=== PATIENT | female | born 1970 | race Caucasian/White ===

== ENCOUNTER 2019-04-16 07:36 | Emergency (ER) | payer OTHER, SELFPAY ==
[2019-04-16 07:37] VITALS: BP 165/86; PULSE 101; RESP 16; TEMP 36.7; O2SAT 99; BMI 39.2
--- NOTE | 2019-04-16 07:53 | CT_ITS ---
STUDY: CT ABDOMEN AND PELVIS WITHOUT CONTRAST REASON FOR EXAM: Female, 48 years old. Right-sided abdominal pain. RADIATION DOSAGE (If Supplied By Facility): CTDIvol = ( 22.66 ) mGy, DLP = ( 1194.69 ) mGycm TECHNIQUE: Transaxial images were obtained from the dome of the diaphragm to the symphysis pubis without oral contrast, and without intravenous contrast. Sagittal and coronal images were reconstructed. Individualized dose optimization techniques were used for this CT. COMPARISON: Comparison is made with prior study dated February 22, 2016. FINDINGS: The visualized lung bases are unremarkable. The visualized portions of the heart are within normal limits. There is decreased attenuation of the liver consistent with steatosis. Mild hepatomegaly. Normal gallbladder and extrahepatic biliary system. Borderline splenomegaly. Normal pancreas. Normal bilateral adrenal glands. Normal right kidney. Normal left kidney. Normal visualized stomach. Normal small intestine. There are multiple colonic diverticula consistent with diverticulosis. The appendix is visualized and appears normal. There is diffuse atherosclerotic calcification of the abdominal aorta, without a demonstrated aneurysm. Normal inferior vena cava. Normal retroperitoneum. Normal urinary bladder. Essure device is seen in both fallopian tubes. Small bilateral benign-appearing inguinal lymph nodes. There is a small umbilical hernia containing fat. There are diffuse degenerative changes of the visualized lumbar spine. CT/Abdomen/Pelvis without Cont IMPRESSION: Sigmoid diverticulosis. Hepatomegaly with diffuse fatty infiltration of the liver. Borderline splenomegaly. Electronically Signed: Kingsley Blankenship, at 8:52 EDT , Service support ,
[2019-04-16] MEDS: 0.9% Normal Saline 1,000 ML 125 ML IV (08:20)
[2019-04-16 08:27] LABS: Bacteria 0 SEEN /hpf (None Seen); Mucous, Urine 0 SEEN /hpf (<or=2+); Red Blood Cells-Urine 0 SEEN /hpf (0-5); White Blood Cells 0 SEEN /hpf (0-5)
[2019-04-16 08:28] LABS: Absolute Lymphocyte Count 1.73 X10^3/uL (0.83-4.51); Absolute Neutrophil Count 7.4 X10^3/uL (2.0-7.7); Basophil# 0.07 X10^3/uL; Basophil% 0.7 % (0-1); Eosinophil# 0.17 X10^3/uL; Eosinophils% 1.7 % (0-5); Hemoglobin 16.3 g/dL (12.0-15.0); Lymphocyte # 1.73 X10^3/ul (4.0); Lymphocyte % 17.3 % (19-41); Mean Corpuscular Hgb 30.9 pg (27.0-32.0); Mean Corpuscular Volume 91.1 fL (81-99); Mean Platelet Vol. 10.4 fl (6.2-12.0); Monocyte# 0.59 X10^3/uL; Monocyte% 5.9 % (0-10); NRBC Flagged by Analyzer 0 % (0-5); Neutrophil # 7.38 X10^3/uL (2.7-7.7); Neutrophil % 73.9 % (47-70); Platelet Count 267 K/mm3 (150-450); RBC Distribution Width CV 12.9 % (11.6-14.6); RBC Distribution Width SD 42.5 fl (35.1-43.9); Red Blood Count 5.27 M/mm3 (4.2-5.4)
[2019-04-16 08:34] LABS: Color, Urine Yellow (Yellow); Glucose, Dipstick Normal (Normal); Ketone-Dipstick Negative (Negative); Leukocyte Esterase-Dipstick Negative /ul (Negative); Nitrite-Dipstick Negative (Negative); Occult Blood-Urine Negative /ul (Negative); Protein-Dipstick Negative (Negative); Urine Bilirubin Dipstick Negative (Negative); Urine Clarity Clear (Clear); Urine Urobilinogen Normal (Normal); Urine pH 6.5 (5.0 - 8.0)
[2019-04-16 08:41] LABS: Squamous Epithelial Cells - UA 0-5 SEEN /hpf (5-10)
[2019-04-16 08:41] LABS: Anion Gap 6 (5-15); BUN 12 mg/dL (7-18); BUN/Creat Ratio 13.4 RATIO (10-20); Calcium,Total 9.1 mg/dL (8.5-10.1); Chloride 105 mmol/L (98-107); EST Glomerular Filtration Rate 71 mL/min (>60); Est Glom Filt Rate - Afr Amer 86 mL/min (>60); Estimated Creatinine Clearance 70.78 ml/min; Glucose 136 mg/dL (74-106); Potassium 4.1 mmol/L (3.5-5.1); Sodium Level 139 mmol/L (136-145)
--- NOTE | 2019-04-16 09:18 | ED.VISSUMM ---
- ER Visit Summary Date of Service: 04/16/19 Chief Complaint: Pain History of Present Illness: The patient is a 48 F with right inguinal pain for 2 days. It was worse today. It feels like a stabbing pain. Nothing seemed to bring it on. It is worse with sitting, but only sometimes. Nothing seems to make it better. Patient denies any other associated symptoms like GI, , or RAIL SIGNAL DESIGNER symptoms. Denies fevers or recent illness. Denies hip pain, hip injury, back injury, weakness, or numbness. Denies any history of this pain. She is menopausal. She has a history of Essure (sp?) placement. Physical Examination: Afebrile and vital signs unremarkable except heart rate of 101 and blood pressure 165/86. She appears nontoxic and in no acute distress. Alert and oriented. Heart regular. Lungs clear. Abdomen is tender in the right inguinal region. No guarding or rebound. Pelvic exam was deferred secondary to no RAIL SIGNAL DESIGNER symptoms or historical risk factors. Back is nontender. Skin appears normal. Test Results: Hemoglobin 16.3, glucose 136, urinalysis unremarkable. CT showed diverticulosis without diverticulitis, fatty liver and hepatosplenomegaly noted. Emergency Department Course and Treatment: Patient presents with right inguinal pain. No other contributing historical features or symptoms. Her exam was fairly unremarkable but she does have some inguinal tenderness. She declined pain medicine while awaiting results. Labs, urinalysis, CT fairly unremarkable. Certainly nothing to explain her inguinal pain. Patient will be referred for outpatient follow-up. Use [id number]-[id number] remedies for pain. Rest. Monitor for new or worsening symptoms. Follow-up with primary care or return if worse. Treatment Plan: As above Disposition: Discharge Impression: Right inguinal pain This note was generated with [employer] dictation software. It may contain incorrect words, spelling, and punctuation that were not noted in review of the chart prior to signing ED Disposition - Plan for ED Patient: Referrals: Care Physician,No Primary [Primary Care Provider] -
--- NOTE | 2019-04-16 09:23 | ED.DEP ---
ED Disposition - Plan for ED Patient: Instructions: ABDOMINAL PAIN, Unknown Cause, (Female) Referrals: Aida Villalba [NON-STAFF] - As Needed
[2019-04-16 09:39] VITALS: BP 142/90; PULSE 72; RESP 16; O2SAT 96
--- NOTE | 2019-04-16 09:39 | ED.RN ---
IV DC'ED, CATHETER INTACT, SMALL GAUZE DRESSING PLACED. DISCHARGE INSTRUCTIONS GIVEN TO AND REVIEWED WITH PATIENT, PATIENT DENIES QUESTIONS OR CONCERNS AND VOICES UNDERSTANDING OF DISCHARGE INSTRUCTIONS. PT AMBULATES OUT OF ROOM WITHOUT DIFFICULTY.
== END 2019-04-16 09:41 | disposition home or self-care (01) ==
LOC: ED 08:16
PROVIDERS: Emergency Provider Emergency Medicine
DX: R10.31 Right lower quadrant pain (principal); Z72.0 Tobacco use
CPT/HCPCS: 74176; 80048; 81001; 85025; 96360; 99283; J7030; A4216

== ENCOUNTER → 2019-12-23 | Outpatient (CLI) | payer OTHER, SELFPAY ==
[2019-12-23 10:16] LABS: ALB/GLOB Ratio 0.7 RATIO (0.9-2.4); AST(SGOT) 25 U/L (15-37); Alanine Aminotransfer ALT/SGPT 33 U/L (13-56); Albumin, Serum 3.4 g/dL (3.2-5.0); Alkaline Phosphatase 134 U/L (45-117); Anion Gap 6 (5-15); BUN 12 mg/dL (7-18); BUN/Creat Ratio 15.2 RATIO (10-20); Calcium,Total 8.8 mg/dL (8.5-10.1); Chloride 101 mmol/L (98-107); Cholesterol 175 mg/dL (200); Creatinine, Serum 0.79 mg/dL (0.55-1.02); EST Glomerular Filtration Rate 82 mL/min (>60); Est Glom Filt Rate - Afr Amer 99 mL/min (>60); Globulin 4.9 g/dL (2.2-4.2); Glucose 169 mg/dL (74-106); High Density Lipoprotein 35 mg/dL; Potassium 3.5 mmol/L (3.5-5.1); Protein, Total 8.3 g/dL (6.4-8.2); Sodium Level 137 mmol/L (136-145); Triglycerides 123 mg/dL; Very Low Density Lipoprotein 25 mg/dL (5-40)
== END | disposition home or self-care (01) ==
LOC: MTLAB 07:46
PROVIDERS: PCP Family Medicine; Referring Provider Family Medicine; Visit Provider Family Medicine
DX: Z13.1 Encounter for screening for diabetes mellitus (principal); Z13.220 Encounter for screening for lipoid disorders
CPT/HCPCS: 36415; 80053; 80061

== ENCOUNTER → 2020-02-18 | Outpatient (CLI) | payer OTHER, SELFPAY | END | disposition home or self-care (01) | PROVIDERS: Visit Provider Family Medicine | DX: R05 Cough (principal) | CPT/HCPCS: 87635; U0003 ==

== ENCOUNTER → 2020-02-27 | Outpatient (CLI) | payer OTHER, SELFPAY ==
--- NOTE | 2020-02-27 12:20 | LES_PTH ---
PATIENT: REAL SARAVIA LOC: [facility] U#:[id number] AGE/SX: 49/F ROOM: RE02/27/[address]: Dr. Mik Acuna MD : 1970 BED: DIS: 02/27/2020 SPEC #: [id number] RECD: 02/27/20 15:14 STATUS: DONALD BLAINE #: [id number] MIMI: 02/27/20 12:[address]: Mik Acuna DEPT: SURGICAL PATHOLOGY RECD BY: Gilberto Leonard Tissues: Skin of upper extremity and shoulder Procedures: Surgery Specimen Level IV HEADER OPERATION: Shave biopsy PRE-OP DIAGNOSIS: Atypical skin lesion TISSUE SUBMITTED: Left shoulder blade MICROSCOPIC DIAGNOSIS Skin lesion of left shoulder blade, shave biopsy: Actinic keratosis, hyperkeratotic type. AM:sami 03/02/20 MICROSCOPIC DESCRIPTION Slides are reviewed. GROSS DESCRIPTION Received in fixative is one container labeled with the patient's name and designated left shoulder blade. The specimen consists of a piece of alanis-white skin measuring 0.8 x 0.6 x 0.2 cm. The skin surface is granular. The specimen is inked and submitted entirely in one cassette. It will be sectioned at the time of embedding. / KAMARI:sami 03/01/20 TC:5 [facility]: [id number]
== END | disposition home or self-care (01) ==
LOC: LABSPEC 15:58
PROVIDERS: Referring Provider Family Medicine; Visit Provider Family Medicine
DX: L98.9 Disorder of the skin and subcutaneous tissue, unspecified (principal)
CPT/HCPCS: 88305

== ENCOUNTER → 2020-03-05 | Outpatient (CLI) | payer OTHER, SELFPAY ==
--- NOTE | 2020-03-05 13:14 | PFTCOMP_ITS ---
COMPLETE PULMONARY FUNCTION TEST INTERPRETATION Brief HPI: Patient is a 49 year old female, currently under the care of Dr. Acuna, who presents to [facility] for complete pulmonary function tests secondary to diagnosis of dyspnea. Respiratory therapist reports good effort and reproducible results. Interpretation: Forced expiration spirometry shows no large airways obstructive ventilatory defect with an FEV1 of 76% predicted. There is no significant bronchodilator response by strict ATS criteria. Spirograms are of good quality and plateau normally. The respiratory flow volume loop shows a normal pattern. Lung volumes by body plethysmography show a decreased total lung capacity at 3.91 L, 65% predicted. All other lung volumes are reduced symmetrically. Diffusion capacity by carbon monoxide is decreased at 64% predicted. The airway resistance is normal. No previous pulmonary function tests were available for review. Impression: Moderate restrictive ventilatory defect with a symmetric reduction diffusing capacity and a plantar consistent with possible interstitial lung disease. Consider chest imaging if not completed previously.
== END | disposition home or self-care (01) ==
LOC: PSN 09:37
PROVIDERS: PCP Family Medicine; Referring Provider Family Medicine; Visit Provider Family Medicine
DX: R06.02 Shortness of breath (principal)
CPT/HCPCS: 94060; 94726; 94729

== ENCOUNTER → 2020-03-29 | Outpatient (CLI) | payer OTHER, SELFPAY ==
--- NOTE | 2020-03-29 07:42 | CT_ITS ---
STUDY: CT CHEST WITH CONTRAST REASON FOR EXAM: Female, 49 years old. SHORT OF BREATH X 2-3 MON, HX-DB RADIATION DOSAGE (If Supplied By Facility): CTDIvol = ( 13.32 ) mGy, DLP = ( 642.84 ) mGycm TECHNIQUE: Transaxial imaging was performed following intravenous administration of IV 100mL Isovue-300. Multiplanar coronal and sagittal images were reformatted. Individualized dose optimization techniques were used for this CT. COMPARISON: None. FINDINGS: The lungs are normal. There is no demonstrated pleural abnormality. Normal heart and pericardium. There are multiple small lymph nodes within the mediastinum, which are normal in size and morphology most compatible with reactive lymph hyperplasia. Normal hilar regions. Normal enhanced pulmonary arteries. There is atherosclerotic calcification of the aortic arch . Normal osseous structures. Mild hepatomegaly and diffuse fatty infiltration of the liver. CT/Chest WITH Contrast IMPRESSION: The lungs are clear. Fatty infiltration of the liver. Electronically Signed: Kingsley Blankenship, at 8:45 EDT , Service support ,
[2020-03-29 08:06] LABS: CREATININE FINGERSTICK 1.1 mg/dL (0.55-1.02)
== END | disposition home or self-care (01) ==
LOC: CT 07:40
PROVIDERS: PCP Family Medicine; Referring Provider Family Medicine; Visit Provider Family Medicine
DX: R06.02 Shortness of breath (principal)
CPT/HCPCS: 71260; Q9967

== ENCOUNTER → 2020-09-20 16:41 | Outpatient (CLI) | payer OTHER, SELFPAY | PROVIDERS: PCP Family Medicine; Visit Provider Family Medicine | DX: U07.1 COVID-19 (principal) | CPT/HCPCS: 87635; U0002 ==

== ENCOUNTER → 2021-01-07 07:52 | Outpatient (CLI) | payer OTHER, SELFPAY ==
--- NOTE | 2021-01-07 09:03 | BI_ITS ---
MAMMOGRAPHY - BILATERAL DIAGNOSTIC REASON FOR EXAM: Female, 50 years old. Right breast mass at 3 cm from the nipple at 1 o''clock position. PERTINENT HISTORY: Aunt with breast cancer. TECHNIQUE: Digital bilateral breast cynthia (3D mammographic acquisition) in the CC and MLO projections. 2-D mediolateral oblique (MLO) and craniocaudad (CC) views of both breasts were obtained. CAD: Full Field Digital Mammography with Computer Added Detection was performed. COMPARISON: Comparison is made with prior examination dated 01/18/2000 FINDINGS: Breast Composition: There are scattered areas of fibroglandular density. There is no evidence of a 1.5 cm x 1.5 cm density with microcalcifications in the central anterior medial aspect of the right breast. A biopsy is strongly recommended. No other significant abnormalities are identified. BI/DIAG MAMM W/CAD, BILAT IMPRESSION: 1.5 cm x 1.5 cm soft tissue density with microcalcifications in the central anterior medial aspect of the right breast. A biopsy is strongly recommended. ASSESSMENT CATEGORY: BIRADS Category 5: Highly Suggestive of Malignancy - Appropriate Action Should Be Taken. A letter regarding these results will be sent to the patient by the facility within 30 days. Approximately 10% of breast cancers are not detected by mammography. A normal mammogram should not delay biopsy of a clinically suspicious abnormality. Electronically Signed: Kingsley Blankenship MD at 10:32 EDT , Service support ,
--- NOTE | 2021-01-07 09:03 | US_ITS ---
STUDY: ULTRASOUND BREAST - RIGHT REASON FOR EXAM: Female, 50 years old. Palpable lump in the right breast. TECHNIQUE: Axial and longitudinal images of the RIGHT breast were performed with a high resolution ultrasound transducer. # OF IMAGES: 16 COMPARISON: Comparison is made with prior mammogram done earlier today. FINDINGS: RIGHT Breast: The palpable abnormality corresponds to a 2 cm x 2.1 cm by 2.4 cm spiculated hypoechoic density at the 1 o''clock position of the breast at 5 cm from nipple. There is evidence of posterior acoustical shadowing. A biopsy is strongly recommended. US/Breast Limited Unilateral IMPRESSION: 2 cm x 2.1 cm x 2.4 cm spiculated hypoechoic solid nodule at the 1 o''clock position of the breast at 5 cm from nipple. Biopsy is strongly recommended. ASSESSMENT CATEGORY: BIRADS Category 5: Highly Suggestive of Malignancy - Appropriate Action Should Be Taken. A letter regarding these results will be sent to the patient by the facility within 30 days. Electronically Signed: Kingsley Blankenship MD at 10:55 EDT , Service support ,
[2021-01-07 10:01] LABS: Absolute Lymphocyte Count 2.63 X10^3/uL (0.83-4.51); Absolute Neutrophil Count 10.1 X10^3/uL (2.0-7.7); Basophil# 0.08 X10^3/uL; Basophil% 0.6 % (0-1); Eosinophil# 0.26 X10^3/uL; Eosinophils% 1.9 % (0-5); Hematocrit 51.1 % (37-47); Hemoglobin 16.9 g/dL (12.0-15.0); Lymphocyte # 2.63 X10^3/ul (0.83-4.51); Lymphocyte % 18.7 % (19-41); Mean Corp Hgb Conc 33.1 g/dL (32-36); Mean Corpuscular Hgb 30.4 pg (27.0-32.0); Mean Corpuscular Volume 91.9 fL (81-99); Mean Platelet Vol. 10.9 fl (6.2-12.0); Monocyte# 0.85 X10^3/uL; Monocyte% 6.1 % (0-10); NRBC Flagged by Analyzer 0 % (0-5); Neutrophil # 10.14 X10^3/uL (2.7-7.7); Neutrophil % 72.2 % (47-70); Platelet Count 335 K/mm3 (150-450); RBC Distribution Width CV 12.5 % (11.6-14.6); RBC Distribution Width SD 42.5 fl (35.1-43.9); Red Blood Count 5.56 M/mm3 (4.2-5.4)
[2021-01-07 10:27] LABS: ALB/GLOB Ratio 0.7 RATIO (0.9-2.4); AST(SGOT) 19 U/L (15-37); Alanine Aminotransfer ALT/SGPT 27 U/L (13-56); Albumin, Serum 3.5 g/dL (3.2-5.0); Alkaline Phosphatase 132 U/L (45-117); Anion Gap 7 (5-15); BUN 14 mg/dL (7-18); BUN/Creat Ratio 14.2 RATIO (10-20); Calcium,Total 9.5 mg/dL (8.5-10.1); Chloride 99 mmol/L (98-107); Cholesterol 199 mg/dL (200); Creatinine, Serum 0.99 mg/dL (0.55-1.02); EST Glomerular Filtration Rate 63 mL/min (>60); Est Glom Filt Rate - Afr Amer 76 mL/min (>60); Globulin 5.1 g/dL (2.2-4.2); Glucose 208 mg/dL (74-106); High Density Lipoprotein 37 mg/dL; Potassium 3.6 mmol/L (3.5-5.1); Protein, Total 8.6 g/dL (6.4-8.2); Sodium Level 136 mmol/L (136-145); Triglycerides 171 mg/dL; Very Low Density Lipoprotein 34 mg/dL (5-40)
[2021-01-07 11:04] LABS: Microalbumin,Random Urine 12.4 mg/L (NO RANGE EST.); Microalbumin:Creatinine Ratio 8.3 mg/g CRE (<30 mg/g CRE)
[2021-01-07 11:33] LABS: Hemoglobin A1c 6.8 % (3.8-5.6)
== END ==
PROVIDERS: PCP Family Medicine; Referring Provider Family Medicine; Visit Provider Family Medicine
DX: N63.10 Unspecified lump in the right breast, unspecified quadrant (principal); E11.9 Type 2 diabetes mellitus without complications
CPT/HCPCS: 36415; 76642; 77062; 77066; 80053; 80061; 82043; 82570; 83036; 85025; G0279

== ENCOUNTER → 2021-01-10 | Outpatient (CLI) | payer OTHER, SELFPAY ==
--- NOTE | 2021-01-10 | IMM_PTH ---
PATIENT: REAL SARAVIA LOC: [facility] U#:[id number] AGE/SX: 50/F ROOM: RE01/10/[address]: Dr. Livan Serra MD : 1970 BED: DIS: 01/10/2021 SPEC #: [id number] RECD: 01/12/21 14:01 STATUS: DONALD RERandee #: [id number] MIMI: 01/10/21 00:[address]: Livan Serra DEPT: IMMUNOHISTOCHEMISTRY RECD BY: Mary Plascencia ENTERED: 01/12/21 14:02 SP TYPE: IMMUNO OTHR DR: Dr. Mik Acuna MD Tissues: Right breast, NOS Procedures: CALPONIN-1 (add) CK5-6 (add) CK8 (add) YOUSIF-2 (add) E-CAD (add) HER2 LEON (add) KI-67 (add) P53 (add) MN (add) IN SITU HYBRIDIZATION P40 (add) ER (initial) PHYSICIAN & [address] [address] SPECIMEN INFORMATION: Tissue Source: Right breast Clinical Info: Right breast mass Specimen Number: [id number] CPT code: 19979, 50809 x7, 99337 x3, 94488 x2 METHODOLOGY: Deparaffinized sections of prefer/formalin-fixed tissue or PAP/DQ stained slides are incubated with monoclonal/polyclonal antibodies/oligonucleotide probes. Localization is made via biotin free immunoperoxidase method. Appropriate controls are performed and reacted as expected. Results on target cell population are indicated in the following table: RESULTS: ANTIBODY / CLONE RESULT P53 (DO-7) positive, 55% Ki-67 (30-9) positive, 75% CK8 (37zcghK70) positive CK5-6 (D5 & 1684) negative Calponin-1 (YJ043K) negative P40 (BC28) negative E-Cad (ECH-6) positive YOUSIF-2 (SP21) positive, strong MORPHOMETRIC ANALYSIS ER (clone 6F11) >95%, strong MN (clone 16/1E2) 85%, moderate to strong Her-2Neu (clone CB11) 2+ The prognostic test for HER2 is performed on formalin-fixed paraffin embedded tissue. A 3+ (positive) staining pattern is defined as intense, homogeneous, complete, circumferential membranous staining in >10% of contiguous tumor cells. A similar weak (2+) staining pattern is interpreted as equivocal. CHELY follow-up testing is recommended for all equivocal cases. Positivity/negativity for ER/MN is reported if > or < 1% of the tumor cells are immuno- reactive, respectively. The ASCO/CAP criteria is used for scoring. Reference: Journal of Clinical Oncology, 2013; 31:8067-6091 & 2010; 16:7883-0388. Duration of fixation: 31.5 Hrs; Sample Adequate: Yes. These assays have not been validated on decalcified tissues. Results should be interpreted with caution given the likelihood of false negativity on decalcified specimens. These tests were developed and their performance characteristics determined by [facility]. They may not have been cleared or approved by the U.S. Food and Drug Administration. The FDA has determined that such clearance or approval is not necessary. The above immunohistochemical/dualISH markers are ordered and reviewed by the Pathologist. INTERPRETATION: Right breast, core biopsy: Invasive ductal carcinoma, nuclear grade 2/3 Positive for estrogen receptors (favorable prognostic indicator). Positive for progesterone receptors (favorable prognostic indicator). Equivocal for overexpression of VPI7jbc. AM:sami 01/13/2021 ADDENDUM ADDENDUM ADDENDUM ADDENDUM ADDENDUM ADDENDUM ADDENDUM ADDENDUM ADDENDUM ADDENDUM ADDENDUM ADDENDUM ADDENDUM ADDENDUM ADDENDUM ADDENDUM ADDENDUM ADDENDUM ADDENDUM ADDENDUM ADDENDUM ADDENDUM 01/17/2021 12:17 ADDENDUM 01/17/2021 12:17 ADDENDUM 01/17/2021 12:17 ADDENDUM 01/17/2021 12:17 ADDENDUM 01/17/2021 12:17 IN SITU HYBRIDIZATION (CHELY) FOR HER2 Interpretation: Amplified HER2 : CEP-17 Ratio: 3.7 Average HER2 Signal: 8.5 Average CEP-17 Signal: 2.3 Number of Tumor Cells Scanned: 50 Interpretative Information: The INFORM HER2 Dual CHELY DNA Probe Cocktail assay is performed on formalin-fixed paraffin embedded tissue and determines HER2 gene status by detecting HER2 copies via silver in situ hybridization (SISH) and Chromosome 17 copies via chromogenic red in situ hybridization on tumor cells. A minimum of 20 cells representing > 10% of contiguous and homogeneous invasive tumor cells were analyzed. HER2 gene status is classified as Non-amplified (HER2/Chr17 ratio < 2.0) or Amplified (HER2/Chr17 ratio greater than or equal to 2.0). If the resulting HER2/Chr17 ratio falls within 1.8 - 2.2 (Borderline), retesting by FISH is recommended. Reference: Wilbert AC, Marlene PAYTONH, Nkechi DG, et al: Recommendations for Human Epidermal Growth Factor Receptor 2 Testing in Breast Cancer: [place] Society of Clinical Oncology / College of [place] [employer] Clinical Practice Guideline Update. J Clin Oncol 31:0116-9893, 2013. AM:sami 01/17/2021
--- NOTE | 2021-01-10 12:10 | BRBX_PTH ---
PATIENT: REAL SARAVIA LOC: [facility] U#:[id number] AGE/SX: 50/F ROOM: RE01/10/[address]: Dr. Livan Serra MD : 1970 BED: DIS: 01/10/2021 SPEC #: [id number] RECD: 01/10/21 15:11 STATUS: DONALD BLAINE #: [id number] MIMI: 01/10/21 12:[address]: Livan Serra DEPT: SURGICAL PATHOLOGY RECD BY: Beba Ocampo ENTERED: 01/11/21 08:22 SP TYPE: BREAST BX OTHR DR: Dr. Mik Acuna MD Tissues: Right breast, NOS Procedures: Surgery Specimen Level IV HEADER OPERATION: Right breast biopsy PRE-OP DIAGNOSIS: Right breast mass TISSUE SUBMITTED: Right breast tissue MICROSCOPIC DIAGNOSIS Right breast tissue, core biopsy: Invasive ductal carcinoma with the following characteristics: Maximal length ? 5 millimeters Nuclear grade ? 2/3 See comment. AM:sami 01/12/2021 COMMENT ER/MS/Pkq9mlh studies are being performed on sections of tumor and the results from this study will be reported separately ([id number]). Case has been reviewed in consultation with Dr. Pearson who concurs with the above diagnosis. IDC:SJ MICROSCOPIC DESCRIPTION Slides are reviewed. GROSS DESCRIPTION Received in fixative is one container labeled with the patient's name and designated right breast. The specimen consists of three elongated fragments of alanis tissue that in aggregate measure 2.5 x 0.5 x 0.2 cm. The specimen is totally submitted in one cassette. / AM:sami 01/11/21 TC:0 CPT: 00776
[2021-01-10 12:54] VITALS: BMI 39.2
== END | disposition home or self-care (01) ==
LOC: LABSPEC 15:41
PROVIDERS: PCP Family Medicine; Referring Provider Surgery; Visit Provider Surgery
DX: N63.10 Unspecified lump in the right breast, unspecified quadrant (principal)
CPT/HCPCS: 88305; 88341; 88342; 88368

== ENCOUNTER 2021-02-09 09:53 | Day surgery (SDC) | payer OTHER, SELFPAY ==
[2021-01-31 08:05] VITALS: BMI 39.2
--- NOTE | 2021-02-04 08:21 | EKG12_ITS ---
Test Reason : PREOP Blood Pressure : / mmHG Vent. Rate : 076 BPM Atrial Rate : 076 BPM P-R Int : 160 ms QRS Dur : 084 ms QT Int : 384 ms P-R-T Axes : 024 076 047 degrees QTc Int : 432 ms Normal sinus rhythm Normal ECG Confirmed by NILSA CABRERA, JEFRY ([id number]), communications editor NEIDA GARCIA ([id number]) on 02/07/2021 10:07:37 AM Referred By: Livan Serra Confirmed By:JEFRY ASH MD
--- NOTE | 2021-02-09 | AXNB_PTH ---
PATIENT: REAL SARAVIA LOC: [facility] [place] U#:[id number] AGE/SX: 50/F ROOM: RE02/09/[address]: Dr. Livan Serra MD : 1970 BED: DIS: 02/09/2021 SPEC #: [id number] RECD: 02/09/21 13:43 STATUS: DONALD RERandee #: [id number] MIMI: 02/09/21 00:[address]: Livan Serra DEPT: SURGICAL PATHOLOGY RECD BY: Mary Plascencia ENTERED: 02/09/21 14:26 SP TYPE: AX NODE BX OTHR DR: Dr. Mik Acuna MD Tissues: A - Axillary lymph node, NOS B - Right breast, NOS Procedures: Frozen Section (charge) Frozen Section Add'l ([facility]) Surgery Specimen Level V HEADER OPERATION: Right breast stereotactic wire localized partial mastectomy PRE-OP DIAGNOSIS: Invasive ductal carcinoma of right breast TISSUE SUBMITTED: A - Right sentinel node, FS at 1340, B - Right breast tissue, short suture - superior, long suture - lateral FROZEN SECTION DIAGNOSIS A. Right axillary sentinel lymph node, biopsy: One out of one lymph node negative for carcinoma. AM:sami 02/09/2021 MICROSCOPIC DIAGNOSIS A. Right axillary lymph node, biopsy: One lymph node, negative for metastatic carcinoma. B. Right breast tissue, partial mastectomy with needle localization: Invasive ductal carcinoma. Ductal carcinoma in situ. See cancer summary in the comment section. SJ:sami 02/14/2021 COMMENT BREAST CANCER SUMMARY Procedure ? partial mastectomy with needle localization Specimen laterality ? right Invasive tumor: Tumor site ? right breast mass at 3 cm from the nipple at 1 o?clock position. Tumor size ? 2.5 x 2 x 1.5 cm Histologic type ? invasive ductal carcinoma, not otherwise specified. Histologic grade ([place] grade): Glandular/tubular differentiation score - 3 Nuclear pleomorphism score - 2 Mitotic count score - 1 Overall grade ? grade 2 (score of 6) Tumor focality ? 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 Ductal carcinoma in situ comprise about 30% of the total tumor volume. Number of blocks with DCIS ? 8 Number of blocks examined ? 12 Architectural pattern ? comedo, cribriform and solid Nuclear grade ? grade 2 (intermediate) Necrosis ? present, central (expansive ?comedo? necrosis) Lobular carcinoma in situ ? not present Tumor extension: Skin ? not present Nipple ? not applicable Skeletal muscle ? no skeletal muscle is present. Invasive Carcinoma Margin: Uninvolved by invasive carcinoma. The invasive carcinoma is 1 cm away from the closest superior margin. Ductal carcinoma in situ is 0.8 cm away from the closest superior and inferior margin. Regional lymph nodes: Number of lymph nodes examined ? 1 Number of sentinel lymph nodes examined - 1 Number of lymph nodes with macrometastases, micrometastases or isolated tumor cells - 0 Treatment effect ? no known presurgical therapy. Lymphvascular invasion ? not identified Dermal lymphvascular invasion ? not applicable Additional Pathologic Findings ? adenosis and intraductal hyperplasia without atypia. Ancillary Studies: Previously performed on same tumor ([id number] / [id number]) ER: positive (>95%, strong) NJ: positive (85%, moderate to strong) Dvy1dhp: equivocal (2+) Upm1sln by FISH: amplified Microcalcifications ? present in non-neoplastic tissue, ductal carcinoma in situ and invasive carcinoma. Clinical History ? Please make reference to previous specimen ([id number]) right breast tissue, core biopsy with diagnosis of ?invasive ductal carcinoma.? Radiologic findings ? right breast mass with microcalcification. PATHOLOGIC STAGE: pT2 pN0(sn) pMx The above summary is in compliance with [employer] [place] [employer] (CAP) Cancer Protocols Checklist and [place] Joint Committee on Cancer (AJCC), Staging Manual, 8th Ed. Case has been reviewed in consultation with Dr. Brown who concurs with the above diagnosis. IDC:AM MICROSCOPIC DESCRIPTION Slides are reviewed. GROSS DESCRIPTION A - Received fresh for frozen section consultation labeled with the patient's name is a specimen designated right sentinel lymph node. The specimen consists of an irregular fragment of firm, pink-alanis soft tissue measuring 3 x 1.5 x 1 cm. The specimen is serially sectioned and totally submitted in two blacks for frozen section consultation. / AM:sami 02/09/21 B - Received fresh for intraoperative consultation labeled with the patient's name is a specimen designated right breast tissue. The specimen consists of a piece of fibroadipose tissue with needle localization measuring 7 x 6 x 5 cm. The specimen is oriented by sutures: short suture - superior, long suture - lateral. The specimen is inked as follows: anterior - yellow, posterior - black, superior - blue, inferior - green, medial - red and lateral - orange. Serial sections reveal a tumor mass measuring 2.5 x 2?x 1.5 cm. This mass is 1 cm away from the closest superior margin. Sections of the rest of the specimen reveal alanis-yellow adipose cut surfaces mixed with scant, fibrous area. Filament Maker sections?are submitted in 12 cassettes as follows: 1 - perpendicular medial, lateral and posterior margins, 2 - perpendicular anterior, superior and inferior margins, 3-6 - tumor, 7-12 - customer contact representative sections adjacent to and away from the tumor. Sections are submitted after additional fixation. / SJ:sami 02/10/21 TC:0 CPT: 43350 x2, 96644, 12972, 13710
--- NOTE | 2021-02-09 | IMM_PTH ---
PATIENT: REAL SARAVIA LOC: [facility] [place] U[place][id number] AGE/SX: 50/F ROOM: RE02/09/[address]: Dr. Livan Serra MD : 1970 BED: DIS: 02/09/2021 SPEC #: [id number] RECD: 02/14/21 13:54 STATUS: DONALD REQ #: [id number] MIMI: 02/09/21 00:[address]: Livan Serra DEPT: IMMUNOHISTOCHEMISTRY RECD BY: Mary Plascencia ENTERED: 02/14/21 13:55 SP TYPE: IMMUNO OTHR DR: Dr. Mik Acuna MD Tissues: A - Axillary lymph node, NOS Procedures: CK7 (add) Pankeratin (initial) Pankeratin (add) PHYSICIAN & INSTITUTION [place] [address] SPECIMEN INFORMATION: Tissue Source: A ? Right axillary sentinel lymph node biopsy Clinical Info: Invasive ductal carcinoma of right breast Specimen Number: [id number] A1 & A2 CPT code: 00639, 84577 x3 METHODOLOGY: Deparaffinized sections of prefer/formalin-fixed tissue or PAP/DQ stained slides are incubated with monoclonal/polyclonal antibodies/oligonucleotide probes. Localization is made via biotin free immunoperoxidase method. Appropriate controls are performed and reacted as expected. Results on target cell population are indicated in the following table: RESULTS: ANTIBODY / CLONE RESULT Block A1 AE1-3 (AE1/AE3/PCK26) negative CK7 (OV-TL12/30) negative Block A2 AE1-3 (AE1/AE3/PCK26) negative CK7 (OV-TL12/30) negative These tests were developed and their performance characteristics determined by [facility]. They may not have been cleared or approved by the U.S. Food and Drug Administration. The FDA has determined that such clearance or approval is not necessary. The above immunohistochemical/dualISH markers are ordered and reviewed by the Pathologist. INTERPRETATION: A. Right axillary lymph node, biopsy: One lymph node, negative for metastatic carcinoma. KAMARI:sami 02/15/2021
[2021-02-09 10:15] VITALS: BP 145/92; PULSE 92; RESP 18; TEMP 36.3; O2SAT 98; BMI 37.8
[2021-02-09] MEDS: Lactated Ringers 1,000 ML 100 ML IV ×2 (10:20→14:41)
--- NOTE | 2021-02-09 11:00 | NM_ITS ---
PROCEDURE: NUCLEAR MEDICINE Injection [place] Node - RIGHT breast(s). REASON FOR EXAM: Female, 50 years old. Right breast cancer. TECHNIQUE: [place] node localization using radionuclide methods of the RIGHT breast(s) was performed following subcutaneous administration of 1.1 mCi of of sulfur colloid Tc-99m. FINDINGS: 1.1 mCi of technetium labeled sulfur colloid was injected subcutaneously in the superior periareolar region of the right breast. NM/Lymph Node Injection Only IMPRESSION: Subcutaneous injection of 1.1 mCi of technetium labeled sulfur colloid in 4 equal aliquots in the superior periareolar region of the right breast. Electronically Signed: Kingsley Blankenship MD at 15:02 EDT , Service support ,
--- NOTE | 2021-02-09 11:34 | HP.PCM_ITS ---
History and Physical Date of Admission: 02/09/21 Intake Vital Signs 01/31/21 08:05 BMI 39.2 Intake Visit Reasons: DISCUSS RESULTS Chief Complaint: Right breast BIRADS 5 Allergies No Known Allergies Allergy (Verified 01/31/21 08:05) Medications albuterol sulfate 90 mcg/actuation aerosol inhaler 2 puff INHALATION Q4H PRN g 01/10/21 [History Confirmed 01/31/21] budesonide-formoterol HFA 160 mcg-4.5 mcg/actuation aerosol inhaler 2 puff INHALATION BID g 01/10/21 [History Confirmed 01/31/21] gabapentin 100 mg capsule 100 mg PO DAILY PRN cap 01/10/21 [History Confirmed 01/31/21] lansoprazole 30 mg capsule,delayed release 30 mg PO DAILY cap 01/10/21 [History Confirmed 01/31/21] PFSH Medical History Asthma Family history of colon cancer in mother GERD (gastroesophageal reflux disease) Invasive ductal carcinoma of right breast SOB (shortness of breath) Ulcer Surgical History History of colonoscopy (~01/13/20) History of foot surgery (~1997) History of left knee surgery (~2015) History of oral surgery (~2014) History of surgical removal of skin lesion (~2019) History of thumb surgery (~1974) Family History Sister Arthritis Ovarian cancer CVA (cerebral vascular accident) Mother Colon cancer Hypertension Diabetes Father Hypertension Diabetes Aunt Breast cancer Social History Smoking Status: Current every day smoker alcohol intake: never substance use type: does not use caffeine: Yes HPI HPI HPI: REAL SARAVIA, is a 50 F who presents to the office today for breast cancer. The patient was found to have a right invasive ductal carcinoma. Patient had genetic testings and is here to discuss surgery. ROS General General: No weight change or fatigue HEENT HEENT: No difficulty swallowing Endo Endocrine: No thyroid disease Breast Breast: Yes right breast lump Musc Musculoskeletal: No back problems or arthritis Cardio Cardiovascular: No pacemaker, heart disease, atrial fibrillation, high blood pressure, heart attack, heart stent, palpitations or chest pain Psych Psychiatric: No depression or anxiety Resp Respiratory: No shortness of breath, No cough, No COPD, No asthma and No emphysema Gastro Gastrointestinal: No abdominal pain, No nausea or vomiting, No diarrhea, No constipation, No blood in stool, No acid reflux, No hemorrhoids, No ulcers, No gallbladder problem and No black,tarry stools Sam Hematologic: No blood thinners Exam Const General: cooperative Orientation: alert and oriented x3 HENMT Head: normal to inspection Neck Neck: normal visual inspection and full ROM Chest Chest palpation & inspection: normal inspection of the chest Resp Effort & Inspection: normal respiratory effort Auscultation: clear to auscultation bilaterally Cardio Rate: regular rate Rhythm: regular rhythm GI Inspection: non-distended Palpation: soft and nontender Skin General: no rashes or lesions noted Neuro General: patient alert and patient oriented x3 Extrem General: full ROM Psych Appearance: grossly normal Mental Status: mental status grossly normal Assessment and Plan Assessment and Plan (1) Invasive ductal carcinoma of right breast: Status: Acute Plan - Dr. Livan Serra MD: Patient was found to have invasive ductal carcinoma of the right breast. She was sent for genetic testing which was normal. Today she presented to discuss surgery. I discussed mastectomy versus partial mastectomy with her. I informed her that the risk of recurrence is similar whether she has partial mastectomy with radiation versus mastectomy. I discussed sentinel lymph node biopsy as well as the possibility of having to perform an axillary dissection. I also discussed the injection of blue dye as well as stereotactic wire localization. I discussed risks of the procedure including but not limited to bleeding, infection, nerve injury, lymphedema, hematoma or seroma formation. Patient understands all the risks and will be scheduled for a right partial mastectomy with sentinel lymph node biopsy and injection of blue dye with stereotactic wire localization. Livan Serra MD Pager: [facility] [address] [place] [address], [address] [place] [address] Office: I have re-examined the patient. There are no clinical changes since date of exam.
--- NOTE | 2021-02-09 12:00 | BI_ITS ---
SURGICAL BREAST SPECIMEN RADIOGRAPH CLINICAL: Document presence of tissue clip marker in biopsy specimen. FINDINGS: Specimen shows presence of tissue clip marker. Electronically Signed: Kingsley Blankenship MD at 14:10 EDT , Service support , BI/Breast Biopsy Specimen
[2021-02-09] MEDS: Cefazolin 2 GM in 0.9% Normal Saline 100 ML IV (12:54)
[2021-02-09] MEDS: Isosulfan Blue 1% 5 ML Vial (13:07)
[2021-02-09] MEDS: 0.9% Normal Saline (Pres. free 10 ML Vial (13:07)
--- NOTE | 2021-02-09 14:13 | PCM.OPRPT ---
Problems Associated Problem List Diagnoses (1) Invasive ductal carcinoma of right breast: Report of Operation Date of Procedure: 02/09/21 Pre-Operative Diagnosis: Right breast cancer Post-Operative Diagnosis: Same Surgery/Procedure Performed:: 1. Stereotactic guided wire localization 2. Injection of blue dye 3. Right partial mastectomy 4. Right axillary sentinel lymph node biopsy Specimen's removed: 1. Right axillary lymph node 2. Right breast mass Description of Procedure: Patient was brought to the stereotactic room and placed in the stereotactic table and compression views were obtained. Once the clip was identified stereotactic views were obtained and the clip was localized and programmed in the computer. The skin was prepped with Betadine and injected with local anesthetic. The needle was placed into the breast and stereotactic views were once again obtained and the wire was then deployed and mammographic views were obtained. Patient tolerated the procedure well. Patient was brought back the operating room and general anesthesia was induced. The right breast and axilla were prepped and draped in usual sterile fashion. The right axilla was marked and injected with local anesthetic. An incision was made with a scalpel and electrocautery was used to deepen the incision to the axillary fascia which was incised sharply. Blunt dissection was used to identify the sentinel lymph node which was blue but did not have radioactivity. There was no radioactivity in the axilla. There were no other blue nodes in the axilla. The lymph node was dissected free circumferentially with clips and blunt and sharp dissection. It was sent for pathology. The axilla was packed. Next the right breast was addressed and an incision was made with a scalpel. Flaps were raised and the wire was brought into the incision. Circumferentially the mass was dissected free using electrocautery and it was removed. It was marked with sutures short marking superior and long marking lateral. It was sent for pathology and mammogram. Mammogram confirmed that the clip and mass and wire were removed entirely. Pathology showed negative margins. The cavity was irrigated and suctioned dry and hemostasis was obtained using electrocautery. The breast incision was closed using interrupted 3-0 Vicryl sutures in a running 4-0 Monocryl. The axillary fascia was closed using interrupted 3-0 Vicryl sutures and a running 4-0 Monocryl after obtaining hemostasis using clips. Glue was applied to both incisions and a Surgi-Bra was placed. Patient was awoken and taken to PACU in stable condition tolerated the procedure well. Admit VTE Documentation VTE Mechan Device Prophylaxis: SCD's
--- NOTE | 2021-02-09 14:17 | EX.PCM.DISCH ---
Discharge Instructions Procedure Breast Surgery Diet Discharge Diet: No restrictions Activity Discharge Activity: May Not Drive (for 2-3 days or while taking narcotic pain medications.) May shower in (days): 1 Lifting Restrictions: 10 lbs for 1 week Dressing / Incision Call your doctor if your incision/area has: Continuous Slow Oozing, Sudden Increased Bleeding, Increased Pain/ Swelling, Increased Redness, Foul Smelling Discharge and Swelling at the incision site Call your doctor if you observe: Fever of 101 or Higher Suture Line Care: Avoid Pulling/Pushing and Avoid Pinching/Bending Cleanse incision/area with: Soap & Water Follow Up Care Please Follow Up With: Livan Serra MD When: Please call to schedule 2 week follow up appointment. [phone] Test Results: Test results from this visit will be discussed in further detail at your follow-up appointment, if applicable. Discharge Plan Admission Attending Provider: Livan Serra Primary Care Provider: Mik Acuna Discharge Orders/Prescriptions Prescriptions: New oxycodone-acetaminophen [Endocet] 5-325 mg tablet 1 - 2 tab PO Q6H PRN (Reason: pain) 5 Days Qty: 20 RF: 0 No Action lansoprazole 30 mg capsule,delayed release(DR/EC) 30 mg PO DAILY RF: 0 budesonide-formoterol 160-4.5 mcg/actuation HFA aerosol inhaler 2 puff inhalation BID RF: 0 albuterol sulfate 90 mcg/actuation HFA aerosol inhaler 2 puff inhalation Q4H PRN (Reason: SOB) RF: 0 Referrals / Follow Up: Mik Acuna MD [Primary Care Provider] - Disposition Disposition (needs filled in before D/C Order can be placed): Home, Self Care
[2021-02-09 14:33] VITALS: BP 145/92; BP 150/88; PULSE 88; RESP 16; TEMP 36.2; O2SAT 95
[2021-02-09 14:45] VITALS: BP 144/93; BP 145/92; PULSE 82; RESP 16; O2SAT 92
[2021-02-09 15:00] VITALS: BP 130/70; BP 145/92; PULSE 75; RESP 16; TEMP 36.4; O2SAT 94
[2021-02-09 15:33] VITALS: BP 145/92
[2021-02-09 16:02] VITALS: BP 133/69; BP 145/92; PULSE 67; RESP 16; TEMP 36.1; O2SAT 95
== END 2021-02-09 16:12 | disposition home or self-care (01) ==
LOC: SDC 09:55 → AC 09:55
PROVIDERS: PCP Family Medicine; Referring Provider Surgery; Visit Provider Surgery
PROC: (CPT 19301; principal; 2021-02-09 12:45)
DX: C50.911 Malignant neoplasm of unspecified site of right female breast (principal); R59.0 Localized enlarged lymph nodes; K21.9 Gastro-esophageal reflux disease without esophagitis; J45.909 Unspecified asthma, uncomplicated; Z86.16 Personal history of COVID-19; Z79.51 Long term (current) use of inhaled steroids; F17.200 Nicotine dependence, unspecified, uncomplicated
CPT/HCPCS: 19301; 38525; 38792; 19281; 76098; 88305; 88307; 88331; 88332; 88341; 88342; 93005; A9541; J7120; J2405; J3490; Q9968

== ENCOUNTER → 2021-02-15 16:15 | Outpatient (CLI) | payer OTHER, SELFPAY ==
[2021-02-09 10:15] VITALS: BMI 37.8
--- NOTE | 2021-02-15 16:19 | RAD_ITS ---
STUDY: X-RAY CHEST REASON FOR EXAM: Female, 50 years old. cough TECHNIQUE: PA and lateral chest radiographs COMPARISON: 01/11/2015 FINDINGS: The lungs are clear and expanded. There is no demonstrated pleural abnormality. Normal size heart. Normal mediastinum and tawana. Normal visualized pulmonary arteries. Normal visualized aortic arch and descending thoracic aorta. Normal visualized thoracic spine. Normal visualized ribs, clavicles, and shoulders. There is no demonstrated abnormality of the visualized soft tissue structures of the upper abdomen. RAD/Chest PA and Lateral IMPRESSION: Normal x-ray examination of the chest. Electronically Signed: Mark Stanton MD at 3:01 EDT Tel , Service support ,
== END ==
PROVIDERS: PCP Family Medicine; Referring Provider Family Medicine; Visit Provider Family Medicine
DX: R05 Cough (principal)
CPT/HCPCS: 71046

== ENCOUNTER → 2021-03-03 10:21 | Outpatient (CLI) | payer OTHER, SELFPAY ==
--- NOTE | 2021-03-03 10:33 | BD_ITS ---
STUDY: DUAL ENERGY X-RAY ABSORPTIOMETRY / DXA REASON FOR EXAM: Female, 50 years old. Assess for osteopenia TECHNIQUE: Bone Mineral Density (BMD) measurements of lumbar spine and bilateral hips were obtained. COMPARISON: None. FINDINGS: Lumbar Spine (L1-L4): g/cm2 (1.453) / T-score (4.0) / Z-score (4.8) Findings are suggestive of normal bone density with a low fracture risk. Left Femur Total: g/cm2 (1.152) / T-score (1.7) / Z-score (2.3) Left Femoral Neck: g/cm2 (1.076) / T-score (2.0) / Z-score (2.9) Right Femur Total: g/cm2 (1.197) / T-score (2.1) / Z-score (2.6) Right Femoral Neck: g/cm2 (1.026) / T-score (1.6) / Z-score (2.4) BD/Dexa Bone Density Study IMPRESSION: The patient is considered normal as outlined below according to World Jong Organization (WHO) criteria with a low fracture risk. Reference Information: The T-score is the number of standard deviations above or below the standard which is normal for young adults at their peak bone mineral density. The World Health Organization (WHO) interprets the T-scores as follows: Above -1 Normal bone density Between -1 and -2.5 Osteopenia Equal to / or below -2.5 Osteoporosis As a practical clinical guideline, osteopenia may be graded as follows: Mild -1 through -1.5 Moderate -1.6 through -2.0 Severe -2.1 through -2.4 The Z-score is the number of standard deviations above or below age-matched controls. A Z-score of less than -1.5 would be considered abnormal. References: 1. NIH Osteoporosis and Related Bone Diseases www osteo.org 2. International Society for Clinical Densitometry www iscd.org 3. National Osteoporosis Foundation www nof.org Electronically Signed: Kingsley Blankenship MD at 15:50 EDT , Service support ,
== END ==
PROVIDERS: PCP Family Medicine; Referring Provider Internal Medicine Medical Oncology; Visit Provider Internal Medicine Medical Oncology
DX: C50.911 Malignant neoplasm of unspecified site of right female breast (principal); Z13.820 Encounter for screening for osteoporosis
CPT/HCPCS: 77080

== ENCOUNTER → 2021-03-04 12:29 | Outpatient (CLI) | payer OTHER, SELFPAY ==
--- NOTE | 2021-03-04 12:31 | ECHOCS_ITS ---
Reason For Study: Pre Herceptin Procedure This was a 2D Doppler, Color Flow transthoracic echocardiogram. The study was technically difficult. Contrast injection was performed. Unable to obtain Strain Analysis due to needed use of Definity to improve image quality. Exam performed in department. Left Ventricle Normal LV size. Left ventricular systolic function is normal. The estimated ejection fraction is 65 %. Transmitral doppler flow suggestive of impaired relaxation of left ventricle. No regional wall motion abnormalities noted. Right Ventricle Normal RV size. Normal systolic function. Atria The left atrium is mildly enlarged. Normal right atrium. No doppler evidence for ASD. Mitral Valve There is no mitral annular calcification. Normal mitral valve. Trivial mitral valve insufficiency. Tricuspid Valve Normal tricuspid valve. Trivial tricuspid valve insufficiency. Right ventricular systolic pressure estimated to be 20 mmHg. Aortic Valve Trisinus/trileaflet aortic valve. Mild focal aortic valve calcification. Pulmonic Valve The pulmonic valve is not well visualized. Great Vessels The aortic root is not well visualized. Pericardium/Pleural No pericardial effusion. Epicardial fat. Medication 22 gauge I.V. with prn adaptor inserted into right arm. Diluted definity 3ml given slow IV push to enhance endocardial definition. MMode/2D Measurements & Calculations LVIDd: 3.3 cm IVSd: 1.1 cm LA dimension: 3.6 cm LVIDs: 2.3 cm LVPWd: 1.2 cm FS: 31.8 % LAV(MOD-bp): 48.7 ml LVAd ap4: 29.4 cm2 SV(MOD-sp4): 54.0 ml LAV(MOD-bp) Indexed: 22.4 ml/m2 LVLd ap4: 7.6 cm LAV(MOD-sp2): 46.4 ml EDV(MOD-sp4): 93.0 ml LAV(MOD-sp4): 43.5 ml EDV(sp4-el): 96.6 ml LVAs ap4: 16.7 cm2 LVLs ap4: 5.8 cm ESV(MOD-sp4): 39.0 ml ESV(sp4-el): 40.9 ml EF(MOD-sp4): 58.0 % EF(sp4-el): 57.6 % SV(sp4-el): 55.6 ml LA A4 area: 16.9 cm2 RA A4 area: 13.0 cm2 Time Measurements MV dec time: 0.20 sec Doppler Measurements & Calculations MV E max esteban: 82.4 cm/sec Lat Peak E' Esteban: 9.2 cm/sec Med Peak E' Esteban: 6.3 cm/sec MV A max esteban: 102.8 cm/sec E/E' lat: 9.0 E/E' med: 13.0 MV E/A: 0.80 MV V2 max: 98.1 cm/sec MV P1/2t max esteban: 73.3 cm/sec Ao V2 max: 93.3 cm/sec MV max P.9 mmHg MV P1/2t: 81.5 msec Ao max P.5 mmHg MV V2 mean: 51.2 cm/sec MV mean P.2 mmHg MV dec slope: 263.4 cm/sec2 MV V2 VTI: 22.8 cm MVA(P1/2t): 2.7 cm2 LV V1 max: 90.9 cm/sec PA V2 max: 88.6 cm/sec TR max esteban: 208.3 cm/sec LV V1 max P.3 mmHg TR max P.4 mmHg ECHO/Echo Complete W/ Contrast Interpretation Summary The study was technically difficult. Contrast injection was performed. Left ventricular systolic function is normal. The estimated ejection fraction is 65 %. The left atrium is mildly enlarged. Trivial mitral valve insufficiency. Trivial tricuspid valve insufficiency. Mild focal aortic valve calcification. Epicardial fat. Right ventricular systolic pressure estimated to be 20 mmHg. Transmitral doppler flow suggestive of impaired relaxation of left ventricle Ordering Physician: Misha Shi Referring Physician: Mik Acuna Performed By: Hola Nam RCS
== END ==
PROVIDERS: PCP Family Medicine; Visit Provider Internal Medicine Medical Oncology
DX: Z01.818 Encounter for other preprocedural examination (principal); C50.911 Malignant neoplasm of unspecified site of right female breast
CPT/HCPCS: 93306; Q9957; A4216; C8929; J3490

== ENCOUNTER 2021-03-15 05:42 | Day surgery (SDC) | payer OTHER, SELFPAY ==
[2021-03-15 06:23] VITALS: BP 134/78; PULSE 84; RESP 18; TEMP 36.3; O2SAT 99; BMI 38.1
--- NOTE | 2021-03-15 06:49 | PCM.HP.STD ---
HPI - General HPI Narrative REAL SARAVIA, is a 50 F who presents for port placement. Patient had breast cancer and she underwent surgery for this and now she is here for port to have antibody therapy [facility] Medical History (Updated 03/15/21 @ 06:[address] Livan Serra MD) Asthma Cancer Chronic cough Encounter for education Family history of colon cancer in mother Gastric reflux GERD (gastroesophageal reflux disease) History of COVID-19 History of shingles Invasive ductal carcinoma of right breast Postmenopausal Smoker SOB (shortness of breath) Ulcer Wears dentures Wears glasses Home Medications albuterol sulfate 90 mcg/actuation aerosol inhaler 2 puff INHALATION Q4H PRN g 01/10/21 [History Last Taken Unknown] budesonide-formoterol HFA 160 mcg-4.5 mcg/actuation aerosol inhaler 2 puff INHALATION BID g 01/10/21 [History Last Taken 03/15/21 04:30] lansoprazole 30 mg capsule,delayed release 30 mg PO DAILY cap 01/10/21 [History Last Taken 03/15/21 04:30] oxycodone-acetaminophen [Endocet] 1 - 2 tab PO Q6H PRN 5 Days #20 tab 02/09/21 [Rx Last Taken Unknown] Allergy/AdvReac Type Severity Reaction Status Date / Time No Known Allergies Allergy Verified 03/14/21 13:27 Family History Sister Arthritis Ovarian cancer CVA (cerebral vascular accident) Mother Colon cancer Hypertension Diabetes Father Hypertension Diabetes Cancer NON HODGKINS LYMPHOMA Aunt Breast cancer Surgical History (Updated 03/11/21 @ 12:51 by Racquel Pierce) History of colonoscopy (~01/13/20) History of foot surgery (~1997) History of left knee surgery (~2015) History of lumpectomy of right breast (~01/2021) History of oral surgery (~2014) History of surgical removal of skin lesion (~2019) History of thumb surgery (~1974) Social History Smoking Status: Current every day smoker tobacco type: cigarettes alcohol intake: never substance use type: does not use caffeine: Yes ROS Constitutional Constitutional: Denies anorexia or chills Cardiovascular Cardiovascular: Denies chest pain Respiratory/Chest Respiratory/Chest: Denies cough Gastrointestinal Gastrointestinal: Denies abdominal pain Genitourinary Genitourinary: Denies change in urinary stream Musculoskeletal Musculoskeletal: Denies abnormal gait Vital Signs Vital Signs Vital Signs: 03/15/21 06:23 Temperature 97.3 F L Temperature Source Temporal Pulse Rate 84 Respiratory Rate 18 Blood Pressure 134/78 H Blood Pressure Mean 96 Blood Pressure Source Monitor Blood Pressure Position Semi-Fowlers Blood Pressure Location Left Arm Pulse Ox 99 Oxygen Delivery Method Room Air Weight Weight: 243 lb 9.773 oz Body Mass Index (BMI) 38.1 Physical Exam Const oriented x3 and no apparent distress Resp normal respiratory effort Cardio regular rate and regular rhythm GI normal to inspection, nondistended, normoactive bowel sounds Assessment & Plan Assessment/Plan (1) Invasive ductal carcinoma of right breast: (2) Encounter for insertion of venous access port: PLAN: Patient is here for port placement. I discussed port placement with the patient in detail. I discussed the risks include but not limited to bleeding, infection, pneumothorax or line infection or DVT. Patient understands all the risks and is willing to proceed. I will leave the port access for treatment tomorrow. Livan Serra MD Pager: [facility] [address] [place] [address], [address] [place] [address] Office:
[2021-03-15] MEDS: Cefazolin 2 GM in 0.9% Normal Saline 100 ML IV (07:28)
[2021-03-15] MEDS: Lidocaine 1% /Epi 1:100 (20ml) 20 ML Vial (07:38)
[2021-03-15 08:00] VITALS: BP 134/78; BP 144/67; PULSE 82; RESP 16; TEMP 36.1; O2SAT 97
[2021-03-15 08:05] VITALS: BP 134/78; BP 136/72; PULSE 83; RESP 16; O2SAT 99
[2021-03-15 08:10] VITALS: BP 134/78; BP 141/74; PULSE 82; RESP 16; O2SAT 98
--- NOTE | 2021-03-15 08:11 | RAD_ITS ---
STUDY: X-RAY CHEST REASON FOR EXAM: Female, 50 years old. S/P PORT PLACEMENT -- STAT WET READ TECHNIQUE: Single AP portable view of the chest. COMPARISON: Comparison is made with prior study 02/15/2021. FINDINGS: A right-sided portacatheter is in place. The tip is at the junction of the superior vena cava and right atrium. EKG electrodes are seen. Surgical clips are seen in the right axillary region. The lungs are clear and expanded. There is no demonstrated pleural abnormality. Normal size heart. Normal mediastinum and tawana. Normal visualized pulmonary arteries. Normal visualized aortic arch and descending thoracic aorta. There are degenerative changes of the visualized thoracic spine. Normal visualized ribs, clavicles, and shoulders. There is no demonstrated abnormality of the visualized soft tissue structures of the upper abdomen. RAD/Chest 1 View (Portable) IMPRESSION: The tip of the right elisa catheter is at the junction of the superior vena cava and right atrium. No evidence of pneumothorax. Electronically Signed: Kingsley Blankenship MD at 8:25 EDT , Service support ,
[2021-03-15 08:17] VITALS: BP 134/73; BP 134/78; PULSE 81; RESP 16; TEMP 36; O2SAT 96
--- NOTE | 2021-03-15 08:18 | OP.PCM_ITS ---
Problems Associated Problem List Diagnoses (1) Encounter for insertion of venous access port: Report of Operation Date of Procedure: 03/15/21 Pre-Operative Diagnosis: Breast cancer, need for vascular access Post-Operative Diagnosis: Same Surgery/Procedure Performed:: Ultrasound and fluoroscopy guided right chest port placement utilizing right IJ Description of Procedure: After obtaining informed consent patient was brought back to the operating room MAC anesthesia was induced and the right chest and neck were prepped in normal sterile fashion. Ultrasound was used to evaluate both IJs and the right IJ was selected. Next, using a needle, the right IJ was accessed and a guidewire was passed on into the superior vena cava under fluoroscopy guidance. A small incision was made over the puncture site and the dilator introducer was placed over the guidewire. Next this was capped and the pocket was made for the port. 1% lidocaine with epinephrine was injected in the proposed port site. An incision was made with scalpel. Electrocautery was used to make a pocket under the skin and subcutaneous tissue. Hemostasis was obtained. Next, the catheter was tunneled up to the neck incision site and placed through the introducer. The peel-away introducer was removed and the position of the catheter was confirmed on fluoroscopy. Next, the catheter was trimmed and attached to the port with the locking device. Interrupted 2-0 Vicryl sutures were used to anchor the port to the chest wall and then the port was placed inside the pocket. The pocket was then flushed with saline and the port irrigated with saline. There was good blood return and the port flushed easily. Next, heparin was injected into the port. The skin was closed with subcutaneous interrupted 3-0 Vicryl sutures. A single 3-0 Vicryl sutures placed under the skin at the neck incision site. Steri-Strips were placed as well as op sites. Patient tolerated procedure well, was taken to PACU in stable c ondition. Chest x-ray will be obtained. Grafts/Implants Used: 8 Martiniquais PowerPort Admit VTE Documentation VTE Mechan Device Prophylaxis: SCD's
--- NOTE | 2021-03-15 08:20 | EX.PCM.DISCH ---
Discharge Instructions Procedure Port-A-Cath Diet Discharge Diet: Light diet - advance as tolerated (Pain medication may cause nausea. You should typically eat light foods as you take your pain medication.) Activity Discharge Activity: Return to Normal Activity and May Shower (with your bandage in place in 1-2 days after surgery. DO NOT SHOWER WHEN YOUR PORT IS ACCESSED.) Dressing / Incision Call your doctor if your incision/area has: Continuous Slow Oozing, Sudden Increased Bleeding, Increased Pain/ Swelling and Increased Redness Call your doctor if you observe: Fever of 101 or Higher Cleanse incision/area with: Soap & Water Follow Up Care Please Follow Up With: Livan Serra MD When: As needed Test Results: Test results from this visit will be discussed in further detail at your follow-up appointment, if applicable. Discharge Plan Admission Attending Provider: Livan Serra Primary Care Provider: Mik Flower Discharge Orders/Prescriptions Prescriptions: No Action lansoprazole 30 mg capsule,delayed release(DR/EC) 30 mg PO DAILY RF: 0 budesonide-formoterol 160-4.5 mcg/actuation HFA aerosol inhaler 2 puff inhalation BID RF: 0 albuterol sulfate 90 mcg/actuation HFA aerosol inhaler 2 puff inhalation Q4H PRN (Reason: SOB) RF: 0 oxycodone-acetaminophen [Endocet] 5-325 mg tablet 1 - 2 tab PO Q6H PRN (Reason: pain) 5 Days Qty: 20 RF: 0 Referrals / Follow Up: Mik Flower MD [Primary Care Provider] - Disposition Disposition (needs filled in before D/C Order can be placed): Home, Self Care
[2021-03-15 08:46] VITALS: BP 134/78
== END 2021-03-15 08:49 | disposition home or self-care (01) ==
LOC: SDC 05:44 → AC 05:45
PROVIDERS: PCP Family Medicine; Referring Provider Surgery; Visit Provider Surgery
PROC: (CPT 36561; principal; 2021-03-15 07:15)
DX: C50.911 Malignant neoplasm of unspecified site of right female breast (principal); Z45.2 Encounter for adjustment and management of vascular access device; J45.909 Unspecified asthma, uncomplicated; K21.9 Gastro-esophageal reflux disease without esophagitis; F17.210 Nicotine dependence, cigarettes, uncomplicated; Z79.51 Long term (current) use of inhaled steroids; Z79.899 Other long term (current) drug therapy
CPT/HCPCS: 00532; 36561; 71045; 77001; J7120; C1788

== ENCOUNTER → 2021-04-11 11:05 | Outpatient (CLI) | payer OTHER, SELFPAY ==
--- NOTE | 2021-04-11 11:07 | VDUE_ITS ---
Reason For Study: neck pain and swelling Right Proximal Jugular V and Subclavian V are dilated and noncompressible with no flow. Right Lower Arm Right radial vein is compressible. Right ulnar vein is compressible. Right Arm Right axillary vein is spontaneous, patent, phasic, competent, compressible and demonstrates augmentation. Right brachial vein is compressible. Right cephalic vein is compressible. Right basilic vein is compressible. VL/Venous Duplex US, Unilateral Interpretation Summary Acute deep venous thrombosis right jugular and subclavian veins. Patent and compressible right cephalic and basilic veins. Ordering Physician: Jie Pierce Performed By: Roque Yepez RVT ?
== END ==
PROVIDERS: PCP Family Medicine; Referring Provider Physician Assistant; Visit Provider Physician Assistant
DX: R22.1 Localized swelling, mass and lump, neck (principal); M54.2 Cervicalgia; Z45.2 Encounter for adjustment and management of vascular access device
CPT/HCPCS: 93971

== ENCOUNTER → 2021-05-19 08:02 | Outpatient (CLI) | payer OTHER, SELFPAY ==
[2021-05-19 10:25] LABS: Anion Gap 6 (5-15); BUN 12 mg/dL (7-18); BUN/Creat Ratio 13.7 RATIO (10-20); Chloride 100 mmol/L (98-107); Creatinine, Serum 0.87 mg/dL (0.55-1.02); EST Glomerular Filtration Rate 72 mL/min (>60); Est Glom Filt Rate - Afr Amer 88 mL/min (>60); Glucose 233 mg/dL (74-106); Sodium Level 135 mmol/L (136-145)
== END ==
PROVIDERS: PCP Family Medicine; Referring Provider Family Medicine; Visit Provider Nurse Practitioner Family
DX: R03.0 Elevated blood-pressure reading, without diagnosis of hypertension (principal)
CPT/HCPCS: 36415; 80048

== ENCOUNTER → 2021-06-15 08:15 | Outpatient (CLI) | payer OTHER, SELFPAY ==
--- NOTE | 2021-06-15 08:17 | US_ITS ---
STUDY: ULTRASOUND BREAST - RIGHT REASON FOR EXAM: Female, 50 years old. Right breast lumps. The patient is status post right lumpectomy and radiation treatment. TECHNIQUE: Axial and longitudinal images of the RIGHT breast were performed with a high resolution ultrasound transducer. # OF IMAGES: 84 COMPARISON: None. FINDINGS: RIGHT Breast: At the lumpectomy site, there is a 2.7 cm x 3.2 cm and 1.6 cm complex solid and cystic density suggestive of a resolving hematoma. In the upper medial and lateral aspects of the right breast, there are 4 isoechoic to slightly echogenic nodular densities corresponding to the palpable abnormalities. The largest measures 2.3 cm x 2.1 cm by 1.3 cm. This is at the 12 o''clock position of the breast at 6 cm from the nipple. These may represent post radiation areas of the scarring. Correlation with MRI or biopsy is recommended. US/Breast Limited Unilateral IMPRESSION: Findings suggestive of a resolving hematoma at the lumpectomy site. 4. As a cold to slightly echogenic nodular densities in the upper breast corresponding to the palpable abnormalities as described. These may represent areas of scarring following radiation therapy. Correlation with the MRI or possible biopsy recommended. ASSESSMENT CATEGORY: BIRADS Category 0: Incomplete. Need additional imaging evaluation. A letter regarding these results will be sent to the patient by the facility within 30 days. Electronically Signed: Kingsley Blankenship MD at 10:29 EST , Service support ,
== END ==
PROVIDERS: PCP Family Medicine; Referring Provider Surgery; Visit Provider Surgery
DX: N63.10 Unspecified lump in the right breast, unspecified quadrant (principal)
CPT/HCPCS: 76642

== ENCOUNTER → 2021-06-23 10:42 | Outpatient (CLI) | payer OTHER, SELFPAY ==
--- NOTE | 2021-06-23 10:43 | MRI_ITS ---
STUDY: BILATERAL BREAST MR WITHOUT AND WITH CONTRAST REASON FOR EXAM: Female, 50 years old. Lumpectomy with breast radiation in March 2021. Right breast masses. TECHNIQUE: Multi-sequence multi-echo imaging of both breasts was performed with a dedicated breast coil. T1-weighted and T2-weighted images were performed before the administration of contrast. T1-weighted images were also performed after the administration of IV 23ml Dotarem without complications. COMPARISON: Ultrasound of the right breast dated 06/15/2021. Diagnostic mammogram from December 2020. Screening mammogram from 01/07/2021. FINDINGS: RIGHT BREAST: The breast tissue is fatty with minimal background enhancement. Fluid collection in the medial aspect of the right breast with a thin enhancing rim measuring approximately 4.8 cm x 1.5 cm x 1.9 cm. This lesion is compatible with a resolving hematoma/seroma from the lumpectomy. No abnormal enhancing masses or areas of non--mass enhancement LEFT BREAST: The breast tissue is scattered fibroglandular densities with mild background enhancement. There are no abnormal enhancing masses or areas of non-mass enhancement in the left breast. There are no enlarged or abnormal lymph nodes. There is no abnormality in the visualized regions of the chest or liver. MRI/Breast Bilateral W/O and W IMPRESSION: Resolving hematoma/seroma in the right breast medially. No other abnormality identified. CATEGORY: BIRADS Category 2: Benign. A letter regarding these results will be sent to the patient by the facility within 30 days. Electronically Signed: Vitor Bryant MD at 13:08 EST , Service support ,
== END ==
PROVIDERS: PCP Family Medicine; Referring Provider Surgery; Visit Provider Surgery
DX: N63.10 Unspecified lump in the right breast, unspecified quadrant (principal); R92.8 Other abnormal and inconclusive findings on diagnostic imaging of breast
CPT/HCPCS: 77049; A9575; A4216; C8908

== ENCOUNTER 2021-07-27 07:57 | Outpatient (CLI) | payer OTHER, SELFPAY | END 2021-07-27 23:59 | disposition short-term general hospital (02) | PROVIDERS: PCP Family Medicine; Referring Provider Family Medicine; Visit Provider Family Medicine | DX: F17.200 Nicotine dependence, unspecified, uncomplicated (principal) ==

== ENCOUNTER 2021-08-22 09:58 | Outpatient (CLI) | payer OTHER, SELFPAY ==
--- NOTE | 2021-08-22 | IMM_PTH ---
PATIENT: REAL SARAVIA LOC: [facility] U#:[id number] AGE/SX: 51/F ROOM: RE08/22/[address]: Dr. Livan Serra MD : 1970 BED: DIS: 08/22/2021 SPEC #: [id number] RECD: 08/23/21 13:01 STATUS: DONALD RERandee #: [id number] MIMI: 08/22/21 00:[address]: Livan Serra DEPT: IMMUNOHISTOCHEMISTRY RECD BY: Mary Plascencia ENTERED: 08/23/21 13:02 SP TYPE: IMMUNO OTHR DR: Dr. Mik Flower MD Tissues: Right breast, NOS Procedures: CK8 (add) MACRO (add) P53 (add) Vimentin (add) Pankeratin (initial) PHYSICIAN & INSTITUTION [place] [id number] SPECIMEN INFORMATION: Tissue Source: Right breast biopsy Clinical Info: Right breast mass Specimen Number: [id number] CPT code: 97239, 13416 x4 METHODOLOGY: Deparaffinized sections of prefer/formalin-fixed tissue or PAP/DQ stained slides are incubated with monoclonal/polyclonal antibodies/oligonucleotide probes. Localization is made via biotin free immunoperoxidase method. Appropriate controls are performed and reacted as expected. Results on target cell population are indicated in the following table: RESULTS: ANTIBODY / CLONE RESULT AE1-3 (AE1/AE3/PCK26) negative CK8 ([id number]) negative Vimentin (V9) positive Macro (HAM-56) positive P53 (DO-7) negative These tests were developed and their performance characteristics determined by [facility]. They may not have been cleared or approved by the U.[place]. Food and Drug Administration. The FDA has determined that such clearance or approval is not necessary. The above immunohistochemical/dualISH markers are ordered and reviewed by the Pathologist. INTERPRETATION: Right breast, biopsy: Consistent with fat necrosis. No evidence of malignancy. AM:sami 08/24/2021
--- NOTE | 2021-08-22 | BRBX_PTH ---
PATIENT: REAL SARAVIA [facility] U#:[id number] AGE/SX: 51/F ROOM: RE08/22/[address]: Dr. Livan Serra MD : 1970 BED: DIS: 08/22/2021 SPEC #: [id number] RECD: 08/22/21 11:13 STATUS: DONALD VALLADARES #: [id number] MIMI: 08/22/21 00:[address]: Livan Serra DEPT: SURGICAL PATHOLOGY RECD BY: Vasiliy Newell ENTERED: 08/22/21 11:13 SP TYPE: BREAST BX OTHR DR: Dr. Mik Flower MD Tissues: Right breast, NOS Procedures: Surgery Specimen Level IV HEADER OPERATION: Right breast biopsy PRE-OP DIAGNOSIS: Right breast mass TISSUE SUBMITTED: Right breast tissue ISCHEMIC TIME: 1 minute FIXATION TIME: 10.5 hours MICROSCOPIC DIAGNOSIS Right breast mass, core biopsy: Fat necrosis. No evidence of malignancy. See comment. AM:sami 08/23/2021 COMMENT Immunohistochemistry ([id number]) supports the above diagnosis. Reference is made to the patient's previous right breast core biopsy ([id number]) in which invasive ductal carcinoma (nuclear grade 2/3) was identified. MICROSCOPIC DESCRIPTION Slides are reviewed. GROSS DESCRIPTION Received in fixative is one container labeled with the patient's name and designated right breast. The specimen consists of multiple elongated fragments of alanis-yellow fibroadipose tissue that in aggregate measure 1.5 x 0.2 x 0.1 cm. The entire specimen is submitted in one cassette. / SJ:sami 08/22/2021 TC:5 [facility]: [id number]
== END 2021-08-22 23:59 | disposition home or self-care (01) ==
LOC: LABSPEC 09:59
PROVIDERS: PCP Family Medicine; Referring Provider Surgery; Visit Provider Surgery
DX: N64.1 Fat necrosis of breast (principal)
CPT/HCPCS: 88305; 88341; 88342

== ENCOUNTER 2021-09-27 16:29 | Outpatient (CLI) | payer OTHER, SELFPAY ==
[2021-09-27 17:48] LABS: Absolute Lymphocyte Count 2.05 X10^3/uL (0.83-4.51); Basophil# 0.08 X10^3/uL; Basophil% 0.8 % (0-1); Eosinophil# 0.17 X10^3/uL; Eosinophils% 1.7 % (0-5); Hematocrit 45.7 % (37-47); Hemoglobin 16.1 g/dL (12.0-15.0); Lymphocyte # 2.05 X10^3/ul (0.83-4.51); Lymphocyte % 20.3 % (19-41); Mean Corp Hgb Conc 35.2 g/dL (32-36); Mean Corpuscular Volume 88.1 fL (81-99); Mean Platelet Vol. 10.7 fl (6.2-12.0); Monocyte# 0.73 X10^3/uL; Monocyte% 7.2 % (0-10); NRBC Flagged by Analyzer 0 % (0-5); Neutrophil # 7.03 X10^3/uL (2.7-7.7); Neutrophil % 69.6 % (47-70); Platelet Count 309 K/mm3 (150-450); RBC Distribution Width CV 12.8 % (11.6-14.6); RBC Distribution Width SD 41.3 fl (35.1-43.9); Red Blood Count 5.19 M/mm3 (4.2-5.4); White Blood Count 10.1 K/mm3 (4.4-11.0)
[2021-09-27 18:20] LABS: Ferritin 280 ng/mL (8-252); Iron 71 ug/dL (50-170); Iron Binding Capacity,Total 295 ug/dL (250-450)
[2021-09-29 18:34] LABS: Transferrin 230 mg/dL (192-364)
== END 2021-09-27 23:59 | disposition home or self-care (01) ==
LOC: MFPLAB 16:30
PROVIDERS: PCP Family Medicine; Referring Provider Family Medicine; Visit Provider Family Medicine
DX: D75.1 Secondary polycythemia (principal)
CPT/HCPCS: 36415; 82728; 83540; 83550; 84466; 85025

== ENCOUNTER → 2021-12-30 | Outpatient (CLI) | payer OTHER, SELFPAY ==
[2021-12-30 12:36] LABS: Absolute Lymphocyte Count 1.78 X10^3/uL (0.83-4.51); Absolute Neutrophil Count 6.9 X10^3/uL (2.0-7.7); Basophil# 0.05 X10^3/uL; Basophil% 0.5 % (0-1); Eosinophil# 0.16 X10^3/uL; Eosinophils% 1.7 % (0-5); Hematocrit 47.1 % (37-47); Hemoglobin 15.6 g/dL (12.0-15.0); Lymphocyte # 1.78 X10^3/ul (0.83-4.51); Lymphocyte % 18.8 % (19-41); Mean Corp Hgb Conc 33.1 g/dL (32-36); Mean Corpuscular Hgb 30.1 pg (27.0-32.0); Mean Corpuscular Volume 90.9 fL (81-99); Mean Platelet Vol. 11.1 fl (6.2-12.0); Monocyte% 6.3 % (0-10); NRBC Flagged by Analyzer 0 % (0-5); Neutrophil # 6.86 X10^3/uL (2.7-7.7); Neutrophil % 72.3 % (47-70); Platelet Count 270 K/mm3 (150-450); RBC Distribution Width CV 12.6 % (11.6-14.6); RBC Distribution Width SD 42.3 fl (35.1-43.9); Red Blood Count 5.18 M/mm3 (4.2-5.4); White Blood Count 9.5 K/mm3 (4.4-11.0)
[2021-12-30 12:52] LABS: ALB/GLOB Ratio 0.8 RATIO (0.9-2.4); AST(SGOT) 22 U/L (15-37); Alanine Aminotransfer ALT/SGPT 29 U/L (13-56); Albumin, Serum 3.3 g/dL (3.2-5.0); Alkaline Phosphatase 154 U/L (45-117); Anion Gap 4 (5-15); BUN 10 mg/dL (7-18); BUN/Creat Ratio 10.5 RATIO (10-20); Calcium,Total 9.1 mg/dL (8.5-10.1); Chloride 100 mmol/L (98-107); Cholesterol 167 mg/dL (200); Creatinine, Serum 0.95 mg/dL (0.55-1.02); EST Glomerular Filtration Rate 66 mL/min (>60); Est Glom Filt Rate - Afr Amer 79 mL/min (>60); Globulin 4.3 g/dL (2.2-4.2); Glucose 429 mg/dL (74-106); High Density Lipoprotein 29 mg/dL; Protein, Total 7.6 g/dL (6.4-8.2); Sodium Level 134 mmol/L (136-145); Triglycerides 249 mg/dL; Very Low Density Lipoprotein 50 mg/dL (5-40)
[2021-12-30 13:08] LABS: Microalbumin,Random Urine 5.2 mg/L (NO RANGE EST.); Microalbumin:Creatinine Ratio 5.8 mg/g CRE (<30 mg/g CRE)
== END | disposition home or self-care (01) ==
LOC: MFPLAB 09:30
PROVIDERS: PCP Family Medicine; Visit Provider Family Medicine
DX: E11.9 Type 2 diabetes mellitus without complications (principal)
CPT/HCPCS: 36415; 80053; 80061; 82043; 82570; 83036; 85025

== ENCOUNTER → 2022-01-19 | Outpatient (CLI) | payer OTHER, SELFPAY ==
--- NOTE | 2022-01-19 09:24 | BI_ITS ---
MAMMOGRAPHY - BILATERAL DIAGNOSTIC REASON FOR EXAM: Female, 51 years old. Prior right lumpectomy and radiation treatment. Tenderness at the operative site. PERTINENT HISTORY: Personal history of breast cancer. Aunt with breast cancer. TECHNIQUE: Digital bilateral breast cynthia (3D mammographic acquisition) in the CC and MLO projections. 2-D mediolateral oblique (MLO) and craniocaudad (CC) views of both breasts were obtained. CAD: Full Field Digital Mammography with Computer Added Detection was performed. COMPARISON: Comparison is made with prior study dated 02/09/2021. FINDINGS: Breast Composition: There are scattered areas of fibroglandular density. Increased linear markings most likely breast tissue in the right breast as compared to the left side. Postoperative scarring is seen at the operative site with overlying skin thickening. A tissue clip marker is seen in the upper central portion of the right breast. There is evidence of a 1.4 cm x 1.2 cm fat-containing nodule in the slightly medial retroareolar region of the breast as well as a similar appearing nodule measuring 1 cm x 1 cm in the mid deep portion of the right breast suggestive of a fat necrosis. No other significant abnormalities are identified. BI/DIAG MAMM W/CAD, BILAT IMPRESSION: Status post lumpectomy with resultant postoperative changes in the right breast as described. Findings suggestive of 2 areas of fat necrosis. Correlation with ultrasound is recommended. ASSESSMENT CATEGORY: BIRADS Category 0: Incomplete. Need additional imaging evaluation. A letter regarding these results will be sent to the patient by the facility within 30 days. Approximately 10% of breast cancers are not detected by mammography. A normal mammogram should not delay biopsy of a clinically suspicious abnormality. Electronically Signed: Kingsley Blankenship MD at 10:57 EDT ,
--- NOTE | 2022-01-19 09:55 | US_ITS ---
STUDY: ULTRASOUND BREAST - RIGHT REASON FOR EXAM: Female, 51 years old. Right breast carcinoma. Prior lumpectomy. Palpable lump and tenderness at the lumpectomy site. TECHNIQUE: Axial and longitudinal images of the RIGHT breast were performed with a high resolution ultrasound transducer. # OF IMAGES: 12 COMPARISON: Comparison is made with prior mammogram done earlier in the day and prior ultrasound of the right breast dated 06/15/2021. FINDINGS: RIGHT Breast: There is a 1 cm x 1.17 x 0.7 cm hypoechoic slightly irregular nodule in the retroareolar region of the breast at the 3 o''clock position. US/Breast Limited Unilateral IMPRESSION: The palpable abnormality corresponds to one side of by 1.1 cm x 0.7 cm slightly irregular hypoechoic solid nodule in the retroareolar region of the breast at the 3 o''clock position. A biopsy is recommended. ASSESSMENT CATEGORY: BIRADS Category 4: Suspicious - Biopsy Should Be Considered. A letter regarding these results will be sent to the patient by the facility within 30 days. Electronically Signed: Kingsley Blankenship MD at 12:24 EDT ,
== END | disposition home or self-care (01) ==
LOC: OPBI 09:23
PROVIDERS: PCP Family Medicine; Referring Provider Student in an Organized Health Care Education/Training Program; Visit Provider Student in an Organized Health Care Education/Training Program
DX: C50.911 Malignant neoplasm of unspecified site of right female breast (principal)
CPT/HCPCS: 76642; 77062; 77066; G0279

== ENCOUNTER 2024-02-18 11:46 | Emergency (ER) | payer OTHER, SELFPAY ==
[2024-02-18 11:46] VITALS: BP 111/71; PULSE 120; RESP 16; TEMP 36.3; O2SAT 99; BMI 26.6
--- NOTE | 2024-02-18 13:32 | EKG12_ITS ---
Test Reason : Blood Pressure : / mmHG Vent. Rate : 102 BPM Atrial Rate : 102 BPM P-R Int : 140 ms QRS Dur : 074 ms QT Int : 340 ms P-R-T Axes : 046 063 039 degrees QTc Int : 443 ms Sinus tachycardia Otherwise normal ECG Confirmed by RUBEN CABRERA, BERTA ([id number]), fan mail editor NEIDA GARCIA ([id number]) on 02/22/2024 9:40:42 AM Referred By: Confirmed By:JAME MIRANDA MD
[2024-02-18 13:46] VITALS: BP 138/76; PULSE 100; RESP 16; O2SAT 99
--- NOTE | 2024-02-18 13:50 | RAD_ITS ---
STUDY: X-RAY CHEST REASON FOR EXAM: Female, 53 years old. Cough TECHNIQUE: Single AP portable view of the chest. COMPARISON: Comparison is made with prior study dated March 15, 2021. FINDINGS: Surgical clips are seen in the right axillary region. The lungs are clear and expanded. There is no demonstrated pleural abnormality. Normal size heart. Normal mediastinum and tawana. Normal visualized pulmonary arteries. Normal visualized aortic arch and descending thoracic aorta. There are diffuse degenerative changes of the visualized thoracic spine. 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 There is no demonstrated abnormality of the visualized soft tissue structures of the upper abdomen. RAD/Chest 1 View (Portable) IMPRESSION: The lungs are clear. 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 Electronically Signed: Kingsley Blankenship MD at 14:19 EDT ,
[2024-02-18 13:52] LABS: Hemoglobin 11.3 g/dL (12.0-15.0); Mean Corp Hgb Conc 32.3 g/dL (32-36); Mean Corpuscular Hgb 29.4 pg (27.0-32.0); Mean Corpuscular Volume 90.9 fL (81-99); Mean Platelet Vol. 9.6 fl (6.2-12.0); POSITIVE COUNT YES; POSITIVE MORPHOLOGY YES; Platelet Count 86 K/mm3 (150-450); RBC Distribution Width CV 19.1 % (11.6-14.6); RBC Distribution Width SD 63.4 fl (35.1-43.9); Red Blood Count 3.85 M/mm3 (4.2-5.4); White Blood Count 5.8 K/mm3 (4.4-11.0)
[2024-02-18 13:54] LABS: Differential Indicated MANUAL DIFF
[2024-02-18] MEDS: 0.9% Normal Saline (1000mL) 1,000 ML 1000 ML IV (14:00)
[2024-02-18 14:10] LABS: Neutrophil-Band 4 % (0-5); Neutrophil-Segmented 66 % (47-70); Total Cells Counted 100 (MANUAL DIFF)
[2024-02-18 14:11] LABS: Basophil 1 % (0-1); Eosinophil 1 % (0-5); Lymphocyte 21 % (19-41); Metamyelocyte 1 % (0-1); Monocyte 6 % (0-10); Platelet Estimate MOD DEC (ADEQ); Polychromasia 1+; Red Cell Morphology N CYTIC NORMAL (NORM C&C)
[2024-02-18 14:12] LABS: Absolute Lymphocyte Count 1.21 X10^3/uL (0.83-4.51); Absolute Neutrophil Count 4.1 X10^3/uL (2.0-7.7)
[2024-02-18 14:19] LABS: AST(SGOT) 307 U/L (15-37); Alanine Aminotransfer ALT/SGPT 55 U/L (13-56); Albumin, Serum 2.6 g/dL (3.2-5.0); Alkaline Phosphatase 799 U/L (45-117); Anion Gap 12 (5-15); BUN 13 mg/dL (7-18); Bilirubin, Direct 0.62 mg/dL (0.00-0.30); Chloride 98 mmol/L (98-107); Creatinine, Serum 0.76 mg/dL (0.55-1.02); EST Glomerular Filtration Rate 84 mL/min (>60); Est Glom Filt Rate - Afr Amer 101 mL/min (>60); Estimated Creatinine Clearance 90.69 ml/min; Glucose 76 mg/dL (74-106); Lipase 12 U/L (13-75); Protein, Total 7.6 g/dL (6.4-8.2); Sodium Level 133 mmol/L (136-145); Troponin-I HS 7 pg/mL (3.0-54.0)
[2024-02-18 14:20] LABS: Color, Urine Amber (Yellow); Glucose, Dipstick Normal (Normal); Ketone-Dipstick 50 mg/dl (Negative); Leukocyte Esterase-Dipstick 25 /ul (Negative); Nitrite-Dipstick Positive (Negative); Occult Blood-Urine 10 /ul (Negative); Protein-Dipstick 30 mg/dl (Negative); Specific Gravity, Urine 1.025 (1.002-1.030); Urine Clarity Cloudy (Clear); Urine Urobilinogen 8 mg/dl (Normal)
[2024-02-18 14:26] LABS: Urine Bilirubin Dipstick 3 mg/dL (Negative)
[2024-02-18 14:27] LABS: Bacteria 3+ /hpf (None Seen); Fine Granular Cast- Urine 0-5 SEEN /lpf (0-5); Hyaline Cast 5-10 SEEN /lpf (0-5); Mucous, Urine 2+ /hpf (<or=2+); Red Blood Cells-Urine 0-5 SEEN /hpf (0-5); Squamous Epithelial Cells - UA 0-5 SEEN /hpf (5-10); White Blood Cells 0-5 SEEN /hpf (0-5)
--- NOTE | 2024-02-18 14:31 | CT_ITS ---
STUDY: CT ABDOMEN AND PELVIS WITH CONTRAST REASON FOR EXAM: Female, 53 years old. Abdominal pain vomiting. Nausea. History of right breast cancer. RADIATION DOSAGE (If Supplied By Facility): CTDIvol = ( 14.65 ) mGy, DLP = ( 1541.21 ) mGycm TECHNIQUE: Transaxial images were obtained from the dome of the diaphragm to the symphysis pubis without oral contrast. IV 100mL Isovue-370 was administered. Sagittal and coronal images were reconstructed. Individualized dose optimization techniques were used for this CT. COMPARISON: Comparison is made with prior study dated April 16, 2019. FINDINGS: Right pleural effusion with right basilar dependent atelectasis. Small left pleural effusion. Coronary artery calcification. Hepatomegaly. Diffuse abnormality involving the liver with multiple hepatic metastasis. Normal gallbladder and extrahepatic biliary system. Normal spleen. Normal pancreas. Normal bilateral adrenal glands. Normal right kidney. Normal left kidney. Normal visualized stomach. Normal small intestine. Normal colon. The appendix is visualized and appears normal. There is diffuse atherosclerotic calcification of the abdominal aorta, without a demonstrated aneurysm. Normal inferior vena cava. Normal retroperitoneum. Normal urinary bladder. Normal abdominal wall. 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 CT/Abdomen/Pelvis W IV Cont ONLY IMPRESSION: Diffuse hepatic enlargement with marked abnormalities in keeping with diffuse bilateral metastatic deposits. 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 Electronically Signed: Kingsley Blankenship MD at 15:49 EDT ,
--- NOTE | 2024-02-18 14:31 | CT_ITS ---
STUDY: CTA CHEST REASON FOR EXAM: Female, 53 years old. Pulmonary embolism, malignancy RADIATION DOSAGE (If Supplied By Facility): CTDIvol = ( 14.65 ) mGy, DLP = ( 1541.21 ) mGycm TECHNIQUE: The examination was performed with the intravenous administration of IV 100mL Isovue-370. Post-processing of the angiographic images was performed, with multiplanar reformation and 3D reconstruction. Individualized dose optimization techniques were used for this CT. COMPARISON: None. FINDINGS: Normal enhancement of the main pulmonary artery and right and left pulmonary arteries. Normal enhancement of the bilateral peripheral pulmonary arteries. There is no demonstrated pulmonary embolism. There is atherosclerotic calcification of the aortic arch with tortuosity. There is no demonstrated aortic dissection. Normal heart and pericardium. Normal mediastinum. Normal hilar regions. Normal visualized trachea and bronchi. The lungs are well expanded. Small left pleural effusion with dependent atelectasis at the right lung base. 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 Diffuse fatty infiltration of the liver. Multiple hepatic nodules in keeping with diffuse metastatic deposits. Hepatomegaly. CT/CTA Chest W/WO Contrast IMPRESSION: Moderate-sized right pleural effusion with right basilar dependent atelectasis. No evidence of pulmonary embolus. Hepatomegaly with diffuse metastatic deposits. Diffuse sclerotic metastasis involving the appendicular and axial skeletons. Electronically Signed: Kingsley Blankenship MD at 15:47 EDT ,
--- NOTE | 2024-02-18 15:06 | EDS_ITS ---
HPI History of Present Illness Chief Complaint: General Illness Informant: patient and family Narrative Narrative: 53-year-old female remote history of invasive ductal carcinoma of the breast status post radiation and surgery. Patient is presenting with a 3-month history of weight loss fatigue discomfort with eating vomiting. She does not weigh herself so she is unsure of how much she has lost but notes that during oncology treatment she was greater than 200 pounds. Currently 170. She states that after only a couple bites she feels full in her chest and epigastrium. She denies any fevers. She notes that she is a smoker. She has been coughing with occasional phlegm but notes that that is unchanged. She states that she is not treated for any medical problems currently. I see that she was at 1 point on apixaban. This was for a right jugular DVT during oncology treatments. [facility] Medical History Breast cancer Neck pain Neck swelling Encounter for education History of COVID-19 History of shingles Wears glasses Wears dentures Cancer Postmenopausal Gastric reflux Smoker Chronic cough Invasive ductal carcinoma of right breast GERD (gastroesophageal reflux disease) Family history of colon cancer in mother Ulcer Asthma SOB (shortness of breath) Home Medications ?Medication ?Instructions ?Recorded ?Last Taken ?Type albuterol sulfate 90 mcg/actuation 2 puff inhalation Q4H PRN SOB 01/10/21 Unknown History aerosol inhaler budesonide-formoterol HFA 160 2 puff inhalation BID 01/10/21 03/15/21 04:30 History mcg-4.5 mcg/actuation aerosol inhaler lansoprazole 30 mg capsule,delayed 30 mg PO DAILY GERD 01/10/21 03/15/21 04:30 History release lidocaine-prilocaine 2.5 %-2.5 % 1 applic topical ONCE PRN port 03/16/21 Unknown Rx topical cream access 30 days #30 grams hydroxyzine HCl 25 mg tablet ea PO 04/19/21 Unknown History anastrozole 1 mg tablet 1 mg PO DAILY #90 tabs 04/29/21 Unknown Rx lisinopril 2.5 mg tablet 5 mg PO 05/19/21 Unknown History apixaban 5 mg tablet (Eliquis) See Rx Instructions .Route 11/02/21 Unknown Rx .COMPLEX #180 tabs empagliflozin 10 mg tablet ea PO 11/02/21 Unknown History Allergy/AdvReac Type Severity Reaction Status Date / Time No Known Allergies Allergy Verified 02/18/24 11:47 Family History Sister Arthritis Ovarian cancer CVA (cerebral vascular accident) Mother Colon cancer Hypertension Diabetes Father Hypertension Diabetes Cancer NON H[place]INS LYMPHOMA Aunt Breast cancer Surgical History History of lumpectomy of right breast (~01/2021) History of colonoscopy (~01/13/20) History of surgical removal of skin lesion (~2019) History of left knee surgery (~2015) History of oral surgery (~2014) History of foot surgery (~1997) History of thumb surgery (~1974) Social History Smoking Status: Current every day smoker tobacco type: cigarettes alcohol intake: never substance use type: does not use caffeine: Yes ROS ROS ED Constitutional Constitutional ED: Reports weight loss; Denies chills or fever(s) Eyes Eyes: Denies change in vision or diplopia ENT ENT ED: Denies ear pain, rhinorrhea or sore throat Cardiovascular Cardiovascular: Reports chest pain; Denies orthopnea, palpitations or racing heartbeat Respiratory/Chest Respiratory/Chest: Reports cough; Denies dyspnea or orthopnea Gastrointestinal Gastrointestinal: Reports abdominal pain, nausea and vomiting; Denies diarrhea Genitourinary Genitourinary ED: Denies dysuria, hematuria or urinary frequency Musculoskeletal Musculoskeletal: Denies arthralgias or myalgias Integumentary Denies abscess or rash Neurologic Neurologic: Denies headache(s) or weakness Psychiatric Psychiatric: Denies anxiety, depression, suicidal ideation or suicidal thoughts Endocrine Endocrinology: Denies polydipsia, polyphagia or polyuria Allergic/Immunologic Allergic/Immunologic ED: Denies mouth swelling, tongue swelling or urticaria EXAM Physical Exam Const Vital Signs: 02/18/24 11:46 02/18/24 11:59 02/18/24 13:46 Temperature 97.4 F L Temperature Source Temporal Pulse Rate 120 H 100 Respiratory Rate 16 16 Respiratory Effort Normal Respiratory Pattern Normal Blood Pressure 111/71 138/76 H Blood Pressure Mean 84 96 Pulse Ox 99 99 Oxygen Delivery Method Room Air Room Air Positive well nourished, well developed and obese General Appearance ED: well developed Nutritional Appearance: obese HEENT Reports normocephalic, head/scalp atraumatic and moist mucous membranes Eyes PERRL and EOMs intact bilaterally Neck no lymphadenopathy, supple and no JVD Resp normal respiratory effort and clear to auscultation bilaterally Cardio regular rate, regular rhythm and no murmurs Rate: tachycardic GI normal to inspection, nondistended, normoactive bowel sounds and non-tender Palpation: soft Back/Spine no CVA tenderness and normal ROM Extremity normal to inspection General Extremety ED: Negative for edema General Extremity: Negative for edema Neuro oriented x3 and CN's II-XII intact bilaterally Sensorium / Orientation: alert Motor Exam: strength 5/5 throughout Psych mental status grossly normal Mood & Affect: Negative for depressed or tearful Skin no rashes or lesions noted and no wounds MDM MDM MDM Narrative Medical decision making narrative: Differential diagnosis includes but not limited to biliary colic pancreatitis recurrent metastatic disease cardiac dysrhythmia dehydration EKG shows sinus tachycardia rate of 102. White count 5.8 hemoglobin 11.3 platelet count is 86. She does have noted 4 bands 66% neutrophils 21% lymphocytes total bilirubin is 1.3 with direct bilirubin is 0.62 AST of 307 ALT 55 alkaline phosphatase at 799 troponin is 7 lipase is normal 12 urinalysis shows 3+ bacteria positive nitrates 0-5 white cells 0-5 red cells 0-5 epithelial cells. Patient my independent interpretation of the chest x-ray is no obvious effusion lung mass or pneumonia. There are changes of the bony skeleton concerning for metastatic disease. A CT of the chest abdomen pelvis will be obtained. Care of the patient will be turned over to the oncoming physician. History & Record Review Discussion w/independent historian: Patient Additional record(s) reviewed:: Prior outpatient record and Prior labs Lab Data Attestation: I reviewed the patient's lab results. Labs: Laboratory Results - last 24 hr 02/18/24 02/18/24 12:38 14:15 WBC 5.8 RBC 3.85 L Hgb 11.3 L Hct 35.0 L MCV 90.9 MCH 29.4 MCHC 32.3 RDW Std Deviation 63.4 H RDW Coeff of [place] 19.1 H Plt Count 86 L MPV 9.6 Neut % (Auto) Not Reportable Absolute Neuts (auto) 4.1 Absolute Lymphs (auto) 1.21 Total Counted 100 Neutrophils % (Manual) 66 Band Neutrophils % 4 Lymphocytes % (Manual) 21 Monocytes % (Manual) 6 Eosinophils % (Manual) 1 Basophils % (Manual) 1 Metamyelocytes % 1 Diff Path Review May foll Platelet Estimate MOD DEC RBC Morphology N CYTIC Polychromasia 1+ Sodium 133 L Potassium 4.0 Chloride 98 Carbon Dioxide 23.0 Anion Gap 12 BUN 13 Creatinine 0.76 Estim Creat Clear Calc 90.69 Est GFR (MDRD) Af Amer 101 Est GFR (MDRD) Non-Af 84 BUN/Creatinine Ratio 17.0 Glucose 76 Calcium 9.0 Total Bilirubin 1.30 H Direct Bilirubin 0.62 H AST 307 H ALT 55 Alkaline Phosphatase 799 H Troponin I High Sens 7 Total Protein 7.6 Albumin 2.6 L Globulin 5.0 H Lipase 12 L Urine Color Chanda Urine Clarity Cloudy Urine pH 5.0 Ur Specific [place] 1.025 Urine Protein 30 H Urine Glucose (UA) Normal Urine Ketones 50 H Urine Occult Blood 10 H Urine Nitrite Positive H Urine Bilirubin 3 H Urine Urobilinogen 8 H Ur Leukocyte Esterase 25 H Urine RBC 0-5 SEEN Urine WBC 0-5 SEEN Ur Squamous Epith Cells 0-5 SEEN Urine Bacteria 3+ Hyaline Casts 5-10 SEEN Fine Granular Casts 0-5 SEEN Urine Mucus 2+ Radiography Diagnostic Testing: Clinical Impression(s) from Imaging Studies Chest X-Ray 02/18/24 13:50 IMPRESSION: The lungs are clear. 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 Electronically Signed: Kingsley Blankenship MD at 14:19 EDT , EKG Initial EKG: Attestation: I personally reviewed and interpreted this EKG as follows: Comments: Sinus tachycardia ventricular rate of 102 bpm Discharge Plan Triage Chief Complaint: General Illness ED Provider: Rene Bell Dx/Rx/DC Orders Clinical Impression: Chest pain, Abdominal pain, Thrombocytopenia, Abnormal weight loss Prescriptions: No Action lansoprazole 30 mg capsule,delayed release(DR/EC) 30 mg PO DAILY Patient Comments: TAKE 1 CAPSULE BY MOUTH EVERY DAY budesonide-formoterol 160-4.5 mcg/actuation HFA aerosol inhaler 2 puff inhalation BID Patient Comments: TAKE 2 PUFFS BY MOUTH TWICE A DAY albuterol sulfate 90 mcg/actuation HFA aerosol inhaler 2 puff inhalation Q4H PRN (Reason: SOB) Patient Comments: 2 (TWO) PUFF EVERY 4 HOURS NEEDED FOR COUGHING AND WHEEZING hydroxyzine HCl 25 mg tablet PO lisinopril 2.5 mg tablet 5 mg PO Jardiance 10 mg tablet PO Patient Comments: TAKE 1 TABLET BY MOUTH EVERY DAY Eliquis 5 mg tablet See Rx Instructions .ROUTE .COMPLEX Qty: 180 0RF Dose Instruction: TAKE 1 TABLET BY MOUTH TWICE A DAY Rx Instructions: TAKE 1 TABLET BY MOUTH TWICE A DAY lidocaine-prilocaine 2.5-2.5 % cream 1 applic topical ONCE PRN (Reason: port access) 30 Days Qty: 30 2RF anastrozole 1 mg tablet 1 mg PO DAILY Qty: 90 3RF Primary Care Provider: Care Physician,No Primary Referrals: Care Physician,No Primary [Primary Care Provider] - Print Language: Emirati
[2024-02-18 16:00] VITALS: BP 159/74; PULSE 105; RESP 16; TEMP 36.4; O2SAT 96
[2024-02-19 08:42] LABS: Pathologist Review Reviewed
== END 2024-02-18 16:06 | disposition home or self-care (01) ==
PROVIDERS: Emergency Provider Emergency Medicine; Visit Provider Emergency Medicine
DX: R07.9 Chest pain, unspecified (principal); R63.4 Abnormal weight loss; D69.6 Thrombocytopenia, unspecified; Z92.3 Personal history of irradiation; R10.9 Unspecified abdominal pain; Z85.3 Personal history of malignant neoplasm of breast; Z86.718 Personal history of other venous thrombosis and embolism; K21.9 Gastro-esophageal reflux disease without esophagitis; J45.909 Unspecified asthma, uncomplicated; F17.210 Nicotine dependence, cigarettes, uncomplicated; E66.9 Obesity, unspecified
CPT/HCPCS: 71045; 71275; 74177; 80048; 80076; 81001; 83690; 84484; 85025; 87086; 93005; 96360; 99284; Q9967